=== PATIENT | female | born 1995 | race Caucasian/White ===

== ENCOUNTER 2017-03-07 07:17 | Emergency (ER) | payer SELFPAY ==
[~2017-03-07] VITALS: Ht 170.2 cm; Wt 64.9 kg
[~2017-03-07 07:17] MED LIST: CIPR250T30 PO; CIPR500T94 PO; GUAI120L35 PO; ONDA4TAB10 SL; PHEN100T82 PO; POTA10TA PO; PROM118S3 PO; SULF1TAB24 PO
--- NOTE | 2017-03-07 07:51 | PHYS DOC ---
General Chief Complaint: VOMITING IN Stated Complaint: NAUSEA,VOMITING,CRAMPING 7 1/2 WKS Time Seen by MD: 07:22 Source: patient Exam Limitations: no limitations Problems: History of Present Illness Initial Comments Pt is 7.5 wks gestation 21/F to ED with her mom for n/v, cramping in . Pt states she was seen two weeks ago at [facility] for similar sx, on that day pt dx and US confirmed viable intrauterine estimated at the time 5.5wks. Pt has not seen OB states she is waiting for her insurance card. States since she was seen at [facility] two weeks ago she's had nausea with vomitting daily, past few days decrease urination/muscle cramps/dizzy when up and active. No vaginal discharge/bleeding, no focal abdominal pain complaints. Pt states she is monogamous in relationship, she admits to h/o trichomonas infection. Pt also tests regularly as she was in a prior relationship with HIV + partner, pt has tested negative to date. 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 Timing/Duration: constant Severity: moderate Modifying Factors: worse with eating, improves with medication, worse with movement, improves with rest Associated Symptoms: headaches, malaise, nausea/vomiting, weakness, other Allergies: Coded Allergies: hydrocodone (Verified Allergy, Unknown, 11/07/16) amoxicillin (Verified Adverse Reaction, Intermediate, 09/05/14) cefaclor (Verified Adverse Reaction, Intermediate, 09/05/14) per ED RN-patient states she tolerated rocephin IM shots in the past (recently) Past Medical History Medical History: other (kidney stones, UTI, trichomonas, HIV exposure) Surgical History: noncontributory Family History Significant Family History: no pertinent family hx Social History Drugs: other (cocaine and methamphetamine history denies current) Review of Systems Constitutional: denies chills, denies fever, malaise Respiratory: denies cough, denies shortness of breath Cardiovascular: denies chest pain, denies palpitations Gastrointestinal: see HPI Genitourinary: denies dysuria, denies frequency, denies hematuria Musculoskeletal: denies back pain, denies joint swelling, denies neck pain Psychiatric/Neurological: headache, denies numbness, denies paresthesia, denies weakness Hematologic/Lymphatic: denies blood clots, denies easy bleeding, denies easy bruising Physical Exam General Appearance: WD/WN, mild distress Eyes: bilateral eye normal inspection, bilateral eye PERRL, bilateral eye EOMI Ear, Nose, Throat: hearing grossly normal, normal ENT inspection, normal pharynx Neck: non-tender, supple Respiratory: normal breath sounds, no respiratory distress Cardiovascular: normal peripheral pulses, regular rate, rhythm, no edema Gastrointestinal: soft (ND, BS normal, generalized TTP no r/g/mass), no organomegaly Rectal: deferred Back: no CVA tenderness, no vertebral tenderness Extremities: non-tender, normal inspection Neurologic/Psychiatric: 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 Pt feeling much better after zofran/IV fluids. She expressed agreement/ understanding with treatment plan. Departure Time of Disposition: 09:08 Disposition: 01 HOME, SELF-CARE Diagnosis: hyperemesis gravidarium Condition: IMPROVED Patient Instructions: Diet - Hyperemesis Gravidarum, Hyperemesis Gravidarum, Medicines During Additional Instructions: Please review the patient education materials. OTC ranitidine for reflux symptoms. Aggressive hydration with gatorade, water. Stop smoking, seek medical assistance if necessary. Take vitamins daily. Rx: zofrand odt Schedule your initial OB evaluation JEFF. Follow up with a doctor next week. Return to ED with new or changing symptoms. LOGAN CARRENO DO March 07, 2017 07:51
[2017-03-07 07:58] LABS: AMPHETAMINE/METHAMPHETAMINE NEG (NEG); BARBITURATES NEG (NEG); BENZODIAZEPINES NEG (NEG); CANNABINOIDS POS (NEG); COCAINE NEG (NEG); METHADONE NEG (NEG); OPIATES NEG (NEG); PHENCYCLIDINE NEG (NEG)
[2017-03-07] MEDS ORDERED: ONDANSETRON PF 4 MG/2 ML VIAL. IV ONE (08:00)
[2017-03-07] MEDS ORDERED: LIDO:MAALOX 1:1 20 ML SINGLE DOSE PO ONE (08:00)
[2017-03-07] MEDS ORDERED: FAMOTIDINE 20 MG/2 ML VIAL IVP ONE (08:00)
[2017-03-07] MEDS ORDERED: IV NORMAL SALINE 1,000ML 1,000 ML IV SCH (08:00)
[2017-03-07 08:05] LABS: BILIRUBIN,URINE NEG (NEG); CLARITY,URINE HAZY; COLOR,URINE YELLOW; GLUCOSE,URINE NEG (NEG); NITRITE,URINE NEG (NEG); UROBILINOGEN,URINE 0.2 mg/dL (0.2 mg/dL)
[2017-03-07 08:06] LABS: BACTERIA,URINE FEW /HPF (0-FEW); SQUAMOUS EPITHELIAL CELL,UR FEW /LPF
[2017-03-07 08:19] LABS: BASO % 0 % (0-3); EOS % 1 % (0-3); HEMATOCRIT 39.6 % (36.0-47.0); HEMOGLOBIN 13.4 g/dL (12.0-15.5); LYMPH # 2.2 x10^3/uL (1.0-4.8); LYMPH % 23 % (24-48); MEAN CORPUSCULAR HEMOGLOBIN 31 pg (25-35); MEAN CORPUSCULAR HGB CONC 34 g/dL (31-37); MEAN CORPUSCULAR VOLUME 93 fL (79-100); MONO # 0.5 x10^3/uL (0.0-1.1); MONO % 5 % (0-9); NEUT # 6.7 x10^3uL (1.8-7.7); NEUT % 71 % (31-73); PLATELET COUNT 202 x10^3/uL (140-400); RED BLOOD COUNT 4.27 x10^6/uL (3.50-5.40); RED CELL DISTRIBUTION WIDTH 14.2 % (11.5-14.5); WHITE BLOOD COUNT 9.5 x10^3/uL (4.0-11.0)
[2017-03-07 08:36] LABS: ALBUMIN 3.8 g/dL (3.4-5.0); CALCIUM 8.8 mg/dL (8.5-10.1); CREATININE 0.7 mg/dL (0.6-1.0); DIRECT BILIRUBIN 0.1 mg/dL (0.0-0.2); GFR 105.6; MAGNESIUM 1.9 mg/dL (1.8-2.4); TOTAL BILIRUBIN 0.3 mg/dL (0.2-1.0); TOTAL PROTEIN 7.4 g/dL (6.4-8.2)
[2017-03-07] MEDS ORDERED: ONDA4TAB10 PO (09:08)
[2017-03-07 09:30] VITALS: BP 100/68
== END 2017-03-07 09:30 | disposition home or self-care (01) ==
LOC: ER 07:17
DX: O21.0 Mild hyperemesis gravidarum (principal); R51 Headache; N39.0 Urinary tract infection, site not specified; F15.10 Other stimulant abuse, uncomplicated; F14.10 Cocaine abuse, uncomplicated; Z87.442 Personal history of urinary calculi; Z3A.01 Less than 8 weeks gestation of pregnancy; Z88.1 Allergy status to other antibiotic agents; Z88.6 Allergy status to analgesic agent
CPT/HCPCS: 36415; 80048; 80076; 80305; 80320; 81001; 83735; 84702; 85027; 96361; 96374; 96375; 99284; J2405; S0028; G0480; G0481; J7030

== ENCOUNTER 2017-03-14 14:21 | Emergency (ER) | payer MEDICAID, OTHER ==
[~2017-03-14] VITALS: Ht 170.2 cm; Wt 64.9 kg
[~2017-03-14 14:21] MED LIST changes: +ONDA4TAB10 PO
[2017-03-14 14:24] VITALS: BP 125/50
--- NOTE | 2017-03-14 14:57 | PHYS DOC ---
Past History Past Medical History: Kidney Stones, Ovarian Cyst, UTI, Other Past Surgical History: Other Smoking: Non-smoker Alcohol Use: Rarely Drug Use: Cocaine, Marijuana, Methamphetamine Adult General Chief Complaint Chief Complaint: MECHANICAL FALL HPI HPI Patient is a 21-year-old female who fell down a flight of stairs on her back, she was carrying something and the stairs worse deep, she just missed a step. She denies being injured by anyone, denies being pushed. She states she fell down about 15-20 stairs. She is especially worried because she is 9 weeks . She has not had any care, she is "waiting for her insurance" . She's had no vaginal bleeding. Review of Systems Review of Systems : States that she is Musculoskeletal: Complains of back pain, denies other musculoskeletal pain Allergies Allergies Allergies Coded Allergies Type Severity Reaction Last Updated Verified hydrocodone Allergy Unknown 11/07/16 Yes amoxicillin Adverse Reaction Intermediate 09/05/14 Yes cefaclor Adverse Reaction Intermediate 09/05/14 Yes Physical Exam Physical Exam Constitutional: Well developed, well nourished, tearful, worried, no acute distress, alert, mentating normally. HENT: Normocephalic, atraumatic, bilateral external ears normal, nose normal. [] Neck: Normal range of motion, no stridor. [] Cardiovascular:Heart rate regular rhythm, no murmur [] Lungs & Thorax: Bilateral breath sounds clear to auscultation [] Abdomen: Bowel sounds normal, soft, nondistended, no tenderness, no masses, no pulsatile masses. Uterus not palpable. Skin: Warm, dry, no erythema, no rash. [] Back: No acute injury noted, no ecchymosis, no swelling, no deformity. Mild generalized tenderness to palpation across the mid to lower thoracic and upper lumbar areas and no bony point tenderness, no crepitance. Extremities: No tenderness, no cyanosis, no clubbing, ROM intact, no edema. [] Neurologic: Alert and oriented X 3, normal motor function, normal sensory function, no focal deficits noted. [] Current Patient Data Vital Signs Vital Signs Date Time Temp Pulse Resp B/P (MAP) Pulse Ox O2 Delivery O2 Flow Rate FiO2 03/14/17 14:24 98.3 105 16 100 Room Air EKG EKG [] Radiology/Procedures Radiology/Procedures [] Course & Med Decision Making Course & Med Decision Making Pertinent Labs and Imaging studies reviewed. (See chart for details) 21-year-old female who states she is 9 weeks fell down a flight of stairs with pain to her back. I discussed with patient and mother that because she is , I would not recommend x-rays of her back and she states she does not want x-rays and agrees with that. I explained to the patient and mother that at 9 weeks, there is no danger to the tiny fetus from a fall, discussed that as the baby grows this will become more of a concern but at this time it is not a concern. Discussed symptomatic treatment including ice and Tylenol, and I urged her to follow up with OB for routine care as soon as possible. [] Dragon Disclaimer Dragon Disclaimer This chart was dictated in whole or in part using Voice Recognition software in a busy, high-work load, and often noisy Emergency Department environment. It may contain unintended and wholly unrecognized errors or omissions. Departure Departure: Impression: Primary Impression: Contusion of back Disposition: 01 HOME, SELF-CARE Condition: STABLE Referrals: PCP,NO (PCP) Patient Instructions: Contusion, [id number] Additional Instructions: As we discussed, ice to areas of pain. Tylenol is safe during . Rest, you'll probably hurt worse before you feel better. As we discussed, in the first trimester,(12 weeks), your baby is very tiny and is well protected inside of your uterus and the bones of your pelvis. Although we can't determine if the itself is "normal", we can save the your baby was not injured by the fall today because it is so tiny and well protected. I encourage you to get OB follow-up as soon as possible. Check with the [facility] on what they can provide you until you're able to get an OB doctor. HARSHAL CHAMPION MD March 14, 2017 14:57
== END 2017-03-14 15:05 | disposition home or self-care (01) ==
LOC: ER 14:21
DX: O9A.211 Injury, poisoning and certain other consequences of external causes complicating pregnancy, first trimester (principal); S30.0XXA Contusion of lower back and pelvis, initial encounter; S20.222A Contusion of left back wall of thorax, initial encounter; S20.221A Contusion of right back wall of thorax, initial encounter; F15.10 Other stimulant abuse, uncomplicated; F14.10 Cocaine abuse, uncomplicated; F12.10 Cannabis abuse, uncomplicated; Z87.442 Personal history of urinary calculi; Z87.440 Personal history of urinary (tract) infections; Z88.6 Allergy status to analgesic agent; Z88.1 Allergy status to other antibiotic agents; Z3A.09 9 weeks gestation of pregnancy; W10.8XXA Fall (on) (from) other stairs and steps, initial encounter; Y93.89 Activity, other specified; Y99.8 Other external cause status; Y92.89 Other specified places as the place of occurrence of the external cause
CPT/HCPCS: 99282

== ENCOUNTER 2017-06-05 12:42 | Emergency (ER) | payer SELFPAY ==
--- NOTE | 2017-06-05 13:20 | PHYS DOC ---
Past History Past Medical History: Kidney Stones, Ovarian Cyst, UTI, Other Past Surgical History: Other Smoking: Non-smoker Alcohol Use: Rarely Drug Use: Cocaine, Marijuana, Methamphetamine Adult General Chief Complaint Chief Complaint: VOMITING IN HPI HPI Patient is a 22-year-old female, 1, para 0, 21 weeks , complaining of vomiting. Patient's doctor told her to come in and get IV fluids. Patient had vomiting earlier in her and did have to come in for some IV fluids, it seemed to improve but she has been having vomiting over the last 1-2 days. No blood in her stool. No diarrhea. No fever. No vaginal bleeding or discharge. She has felt the baby move. Her next doctor's appointment is in 2 weeks. Patient denies chronic medical problems. Review of Systems Review of Systems Constitutional: Denies fever or chills [] GI: As in history of present illness : Denies dysuria or hematuria Musculoskeletal: Denies back pain or joint pain [] Allergies Allergies Allergies Coded Allergies Type Severity Reaction Last Updated Verified hydrocodone Allergy Unknown 11/07/16 Yes amoxicillin Adverse Reaction Intermediate 09/05/14 Yes cefaclor Adverse Reaction Intermediate 09/05/14 Yes Physical Exam Physical Exam Constitutional: Well developed, well nourished, no acute distress, non-toxic appearance. Alert, ambulatory, mentating normally. HENT: Normocephalic, atraumatic, bilateral external ears normal, oropharynx moist, nose normal. [] Eyes: conjunctiva normal, no discharge. [] Neck: Normal range of motion, no stridor. [] Cardiovascular:Heart rate regular rhythm, no murmur Lungs & Thorax: Bilateral breath sounds clear to auscultation [] Abdomen: Gravid consistent with 21 weeks, soft, no tenderness, no masses, no pulsatile masses. [] Skin: Warm, dry, no erythema, no rash. [] Extremities: No tenderness, no cyanosis, no clubbing, ROM intact, no edema. [] Neurologic: Alert and oriented X 3, normal motor function, normal sensory function, no focal deficits noted. [] EKG EKG [] Radiology/Procedures Radiology/Procedures [] Course & Med Decision Making Course & Med Decision Making Pertinent Labs and Imaging studies reviewed. (See chart for details) 22-year-old female who is 21 weeks presents with vomiting. She appears nontoxic. She is ambulatory. She did not have any vomiting in the emergency department. She was given 2 L of IV fluids. Urinalysis consistent with dehydration and small amount of ketones but she believes she will be able to eat and drink if she gets a prescription for Zofran, which she has used in the past and works well for her. [] Dragon Disclaimer Dragon Disclaimer This chart was dictated in whole or in part using Voice Recognition software in a busy, high-work load, and often noisy Emergency Department environment. It may contain unintended and wholly unrecognized errors or omissions. Departure Departure: Impression: Primary Impression: Vomiting during Disposition: HOME, SELF-CARE Condition: IMPROVED Referrals: PCP,TANJA (PCP) Patient Instructions: Nausea and Vomiting, [id number] Additional Instructions: Try to sip small amounts of fluids all day long during the day to stay hydrated. I have prescribed Zofran for nausea if needed. Try to stay well rested, which often helps with nausea as well. Scripts Ondansetron (ZOFRAN ODT) 4 Mg Tab.rapdis 1 TAB SL Q8HRS Y for NAUSEA, #10 TAB Prov: HARSHAL CHAMPION MD 06/05/17 HARSHAL CHAMPION MD Jun 05, 2017 13:20
[2017-06-05] MEDS ORDERED: ONDANSETRON ODT 4 MG TAB.RAPDIS PO ONE (13:30)
[2017-06-05] MEDS ORDERED: IV NORMAL SALINE 1,000ML 1,000 ML IV ONE ×2 (13:30→15:15)
[2017-06-05 15:24] LABS: BACTERIA,URINE FEW /HPF (0-FEW); BILIRUBIN,URINE NEG (NEG); CLARITY,URINE HAZY; COLOR,URINE YELLOW; GLUCOSE,URINE NEG (NEG); NITRITE,URINE NEG (NEG); RBC,URINE OCC /HPF (0-2); SQUAMOUS EPITHELIAL CELL,UR OCC /LPF; UROBILINOGEN,URINE 0.2 mg/dL (0.2 mg/dL)
[2017-06-05] MEDS ORDERED: ONDA4TAB10 SL (15:35)
[2017-06-05 15:43] VITALS: BP 100/49
== END 2017-06-05 15:45 | disposition home or self-care (01) ==
LOC: ER 12:42
DX: O21.0 Mild hyperemesis gravidarum (principal); Z3A.21 21 weeks gestation of pregnancy; Z87.442 Personal history of urinary calculi; Z88.1 Allergy status to other antibiotic agents; Z88.5 Allergy status to narcotic agent; Z88.8 Allergy status to other drugs, medicaments and biological substances
CPT/HCPCS: 81001; 87086; 96360; 96361; 99284; Q0162; J7030

== ENCOUNTER 2018-09-01 18:47 | Emergency (ER) | payer OTHER ==
[~2018-09-01] VITALS: Ht 170.2 cm; Wt 58.4 kg
[2018-09-01] MEDS ORDERED: IV NORMAL SALINE 1,000ML 1,000 ML IV SCH (19:18)
[2018-09-01 19:31] LABS: BASO % 0 % (0-3); EOS # 0.2 x10^3/uL (0.0-0.7); EOS % 2 % (0-3); HEMATOCRIT 44.1 % (36.0-47.0); HEMOGLOBIN 14.8 g/dL (12.0-15.5); LYMPH # 4.5 x10^3/uL (1.0-4.8); LYMPH % 35 % (24-48); MEAN CORPUSCULAR HEMOGLOBIN 30 pg (25-35); MEAN CORPUSCULAR HGB CONC 34 g/dL (31-37); MEAN CORPUSCULAR VOLUME 90 fL (79-100); MONO # 0.8 x10^3/uL (0.0-1.1); MONO % 6 % (0-9); NEUT # 7.3 x10^3uL (1.8-7.7); NEUT % 57 % (31-73); PLATELET COUNT 342 x10^3/uL (140-400); RED CELL DISTRIBUTION WIDTH 14.7 % (11.5-14.5); WHITE BLOOD COUNT 12.8 x10^3/uL (4.0-11.0)
[2018-09-01 19:43] LABS: ALBUMIN/GLOBULIN RATIO 0.9 (1.0-1.7); GFR 68.7; POTASSIUM 4.1 mmol/L (3.5-5.1); TOTAL BILIRUBIN 0.3 mg/dL (0.2-1.0); TOTAL PROTEIN 8.6 g/dL (6.4-8.2)
[2018-09-01] MEDS ORDERED: HALOPERIDOL LACT 5 MG/ML VIAL. IM ONE (19:45)
[2018-09-01] MEDS ORDERED: ONDANSETRON PF 4 MG/2 ML VIAL. IV ONE (19:45)
[2018-09-01] MEDS ORDERED: diphenhydrAMINE 50 MG/ML VIAL IVP ONE (19:45)
[2018-09-01 20:00] LABS: BILIRUBIN,URINE NEG (NEG); CLARITY,URINE CLEAR; COLOR,URINE AMBER; GLUCOSE,URINE NEG (NEG); NITRITE,URINE NEG (NEG); PREG TEST PT QUAL NEGATIVE (NEG); UROBILINOGEN,URINE 0.2 mg/dL (0.2 mg/dL)
[2018-09-01] MEDS ORDERED: KETOROLAC 30 MG/ML VIAL. IV ONE (20:00)
[2018-09-01 20:01] LABS: BACTERIA,URINE 0 /HPF (0-FEW); SQUAMOUS EPITHELIAL CELL,UR MANY /LPF
[2018-09-01 20:03] LABS: AMPHETAMINE/METHAMPHETAMINE POS (NEG); BARBITURATES NEG (NEG); BENZODIAZEPINES NEG (NEG); CANNABINOIDS POS (NEG); COCAINE NEG (NEG); METHADONE NEG (NEG); OPIATES NEG (NEG); PHENCYCLIDINE NEG (NEG)
[2018-09-01] MEDS ORDERED: IOHEXOL 300 MG/ML 75 ML VIAL. IV ONE (20:30)
--- NOTE | 2018-09-01 20:49 | RAD ---
EXAM: Abdomen and pelvis CT with intravenous contrast. HISTORY: Pelvic pain. TECHNIQUE: Computed tomographic images of the abdomen and pelvis were obtained following the administration of 75 cc Omnipaque 300 intravenous contrast. Multiplanar reformatting was performed. *One or more of the following individualized dose reduction techniques were utilized for this examination: 1. Automated exposure control. 2. Adjustment of the mA and/or kV according to patient size. 3. Use of iterative reconstruction technique. COMPARISON: None. FINDINGS: Evaluation of the lower thorax is unremarkable. There is a 2 mm hypodense lesion within the posterior right hepatic lobe, too small to characterize. This likely a cyst. The gallbladder, pancreas, spleen, adrenal glands and left kidney are unremarkable. There is an approximately 2.0 cm enhancing structure along the superior aspect of the right renal pelvis which appears to communicate with the adjacent inferior vena cava, possibly a dilated right renal vein or varix. This is separate from the adjacent renal artery. The appendix is partially obscured due to multiple adjacent bowel loops. There is no convincing appendicitis. There is no bowel obstruction. There is mild mucosal thickening involving the descending colon, likely due to relative under distention. This is not clearly within limits to suggest colitis. There is a septate or septated patent uterus. There are multiple bilateral ovarian follicles. There is a small amount of pelvic free fluid. There is no lymphadenopathy. There is no suspicious osseous lesion. IMPRESSION: 1. Multiple prominent ovarian follicles and small amount of pelvic free fluid, within the aortic limits. The uterus appears septate or subseptate in configuration. 2. 2.0 cm enhancing structure along the superior aspect of the right renal hilum, the appearance of which favors a prominent renal vein or varix of no clinical significance. 3. Partially obscured appendix due to multiple adjacent bowel loops. There is no convincing appendicitis. Electronically signed by: Irena Olson MD (09/01/2018 8:45 PM) [facility]
[2018-09-01 21:30] VITALS: BP 117/69
--- NOTE | 2018-09-01 21:48 | PHYS DOC ---
Adult General Chief Complaint Chief Complaint Abdominal pain HPI HPI 23 years old female with history of drug abuse percent to the emergency department with abdominal pain all over her abdomen no nausea no vomiting no diarrhea status is been constipated over she had a bowel movement today no fever no chills no urgency no frequency Review of Systems Review of Systems Constitutional: Denies fever or chills [] Eyes: Denies change in visual acuity, redness, or eye pain [] HENT: Denies nasal congestion or sore throat [] Respiratory: Denies cough or shortness of breath [] Cardiovascular: No additional information not addressed in HPI [] GI: Denies, nausea, vomiting, bloody stools or diarrhea [] : Denies dysuria or hematuria [] Musculoskeletal: Denies back pain or joint pain [] Integument: Denies rash or skin lesions [] Neurologic: Denies headache, focal weakness or sensory changes [] Endocrine: Denies polyuria or polydipsia [] All other systems were reviewed and found to be within normal limits, except as documented in this note. Current Medications Current Medications Current Medications Medications (Trade) Dose Ordered Sig/Joie Start Time Stop Time Status Last Admin Dose Admin Diphenhydramine HCl (Benadryl) 25 mg 1X ONCE 09/01/18 19:45 09/01/18 19:46 DC 09/01/18 19:56 25 MG Haloperidol Lactate (Haldol) 2 mg 1X ONCE 09/01/18 19:45 09/01/18 19:46 DC 09/01/18 19:55 2 MG Iohexol (Omnipaque 300 Mg/ml) 75 ml 1X ONCE 09/01/18 20:30 09/01/18 20:31 DC 09/01/18 20:26 75 ML Ketorolac Tromethamine (Toradol 30mg Vial) 30 mg 1X ONCE 09/01/18 20:00 09/01/18 20:01 DC 09/01/18 19:57 30 MG Ondansetron HCl (Zofran) 4 mg 1X ONCE 09/01/18 19:45 09/01/18 19:46 DC 09/01/18 19:55 4 MG Sodium Chloride 1,000 ml @ 100 mls/hr Q10H 09/01/18 19:18 09/02/18 05:17 09/01/18 19:57 100 MLS/HR Allergies Allergies Allergies Coded Allergies Type Severity Reaction Last Updated Verified hydrocodone Allergy Unknown 09/01/18 Yes amoxicillin Adverse Reaction Intermediate 09/05/14 Yes cefaclor Adverse Reaction Intermediate 09/05/14 Yes Physical Exam Physical Exam Constitutional: Well developed, well nourished, no acute distress, non-toxic appearance. [] HENT: Normocephalic, atraumatic, bilateral external ears normal, oropharynx moist, no oral exudates, nose normal. [] Eyes: PERRLA, EOMI, conjunctiva normal, no discharge. [] Neck: Normal range of motion, no tenderness, supple, no stridor. [] Cardiovascular:Heart rate regular rhythm, no murmur [] Lungs & Thorax: Bilateral breath sounds clear to auscultation [] Abdomen: Bowel sounds normal, soft, mild tenderness all over tenderness, no masses, no pulsatile masses. [] Skin: Warm, dry, no erythema, no rash. [] Back: No tenderness, no CVA tenderness. [] Extremities: No tenderness, no cyanosis, no clubbing, ROM intact, no edema. [] Neurologic: Alert and oriented X 3, normal motor function, normal sensory function, no focal deficits noted. [] Psychologic: Affect normal, judgement normal, mood normal. [] Current Patient Data Lab Results Laboratory Tests Test 09/01/18 19:10 09/01/18 19:40 09/01/18 19:46 White Blood Count 12.8 x10^3/uL (4.0-11.0) H Red Blood Count 4.90 x10^6/uL (3.50-5.40) Hemoglobin 14.8 g/dL (12.0-15.5) Hematocrit 44.1 % (36.0-47.0) Mean Corpuscular Volume 90 fL (79-100) Mean Corpuscular Hemoglobin 30 pg (25-35) Mean Corpuscular Hemoglobin Concent 34 g/dL (31-37) Red Cell Distribution Width 14.7 % (11.5-14.5) H Platelet Count 342 x10^3/uL (140-400) Neutrophils (%) (Auto) 57 % (31-73) Lymphocytes (%) (Auto) 35 % (24-48) Monocytes (%) (Auto) 6 % (0-9) Eosinophils (%) (Auto) 2 % (0-3) Basophils (%) (Auto) 0 % (0-3) Neutrophils # (Auto) 7.3 x10^3uL (1.8-7.7) Lymphocytes # (Auto) 4.5 x10^3/uL (1.0-4.8) Monocytes # (Auto) 0.8 x10^3/uL (0.0-1.1) Eosinophils # (Auto) 0.2 x10^3/uL (0.0-0.7) Basophils # (Auto) 0.0 x10^3/uL (0.0-0.2) Sodium Level 137 mmol/L (136-145) Potassium Level 4.1 mmol/L (3.5-5.1) Chloride Level 100 mmol/L (98-107) Carbon Dioxide Level 29 mmol/L (21-32) Anion Gap 8 (6-14) Blood Urea Nitrogen 12 mg/dL (7-20) Creatinine 1.0 mg/dL (0.6-1.0) Estimated GFR (Cockcroft-Gault) 68.7 BUN/Creatinine Ratio 12 (6-20) Glucose Level 118 mg/dL (70-99) H Calcium Level 9.0 mg/dL (8.5-10.1) Total Bilirubin 0.3 mg/dL (0.2-1.0) Aspartate Amino Transferase (AST) 21 U/L (15-37) Alanine Aminotransferase (ALT) 29 U/L (14-59) Alkaline Phosphatase 88 U/L (46-116) Total Protein 8.6 g/dL (6.4-8.2) H Albumin 4.0 g/dL (3.4-5.0) Albumin/Globulin Ratio 0.9 (1.0-1.7) L Lipase 140 U/L (73-393) Urine Collection Type Unknown Urine Color Paty Urine Clarity Clear Urine pH 5.0 Urine Specific [place] >=1.030 Urine Protein Neg (NEG-TRACE) Urine Glucose (UA) Neg mg/dL (NEG) Urine Ketones (Stick) Neg mg/dL (NEG) Urine Blood Neg (NEG) Urine Nitrite Neg (NEG) Urine Bilirubin Neg (NEG) Urine Urobilinogen Dipstick 0.2 mg/dL (0.2 mg/dL) Urine Leukocyte Esterase Neg (NEG) Urine RBC 1-2 /HPF (0-2) Urine WBC 1-4 /HPF (0-4) Urine Squamous Epithelial Cells Many /LPF Urine Bacteria 0 /HPF (0-FEW) Urine Mucus Mod /LPF Serum Test, Qualitative Negative (NEG) Urine Opiates Screen Neg (NEG) Urine Methadone Screen Neg (NEG) Urine Barbiturates Neg (NEG) Urine Phencyclidine Screen Neg (NEG) Urine Amphetamine/Methamphetamine Pos (NEG) Urine Benzodiazepines Screen Neg (NEG) Urine Cocaine Screen Neg (NEG) Urine Cannabinoids Screen Pos (NEG) Urine Ethyl Alcohol Neg (NEG) POC Urine HCG, Qualitative hcg negative (Negative) EKG EKG [] Radiology/Procedures Radiology/Procedures [] Course & Med Decision Making Course & Med Decision Making Pertinent Labs and Imaging studies reviewed. (See chart for details) [] Final Impression Final Impression [] Problems: (1) Abdominal pain Qualifiers: Qualified Codes: R10.84 - Generalized abdominal pain (2) Drug abuse Dragon Disclaimer Dragon Disclaimer This electronic medical record was generated, in whole or in part, using a voice recognition dictation system. BONNIE RAI MD Sep 01, 2018 21:48
== END 2018-09-01 22:00 | disposition home or self-care (01) ==
LOC: ER 18:47
DX: R10.84 Generalized abdominal pain (principal); F19.10 Other psychoactive substance abuse, uncomplicated; Z88.5 Allergy status to narcotic agent; Z88.1 Allergy status to other antibiotic agents
CPT/HCPCS: 36415; 74177; 80053; 80307; 81001; 81025; 83690; 84703; 85025; 96372; 96374; 96375; 99285; J1200; J1630; J1885; J2405; Q9967; J7030

== ENCOUNTER 2018-10-29 09:24 | Emergency (ER) | payer OTHER ==
[~2018-10-29] VITALS: Ht 170.2 cm; Wt 61.2 kg
[2018-10-29 10:08] LABS: BACTERIA,URINE 0 /HPF (0-FEW); BILIRUBIN,URINE NEG (NEG); CLARITY,URINE CLEAR; COLOR,URINE YELLOW; GLUCOSE,URINE NEG (NEG); NITRITE,URINE NEG (NEG); RBC,URINE RARE /HPF (0-2); SQUAMOUS EPITHELIAL CELL,UR OCC /LPF; UROBILINOGEN,URINE 0.2 mg/dL (0.2 mg/dL); WBC,URINE 0 /HPF (0-4)
[2018-10-29 10:20] LABS: BASO % 0 % (0-3); EOS # 0.1 x10^3/uL (0.0-0.7); EOS % 1 % (0-3); HEMATOCRIT 37.5 % (36.0-47.0); HEMOGLOBIN 12.9 g/dL (12.0-15.5); LYMPH # 2.4 x10^3/uL (1.0-4.8); LYMPH % 31 % (24-48); MEAN CORPUSCULAR HEMOGLOBIN 31 pg (25-35); MEAN CORPUSCULAR HGB CONC 34 g/dL (31-37); MEAN CORPUSCULAR VOLUME 91 fL (79-100); MONO # 0.4 x10^3/uL (0.0-1.1); MONO % 5 % (0-9); NEUT # 4.9 x10^3uL (1.8-7.7); NEUT % 63 % (31-73); PLATELET COUNT 271 x10^3/uL (140-400); RED BLOOD COUNT 4.12 x10^6/uL (3.50-5.40); RED CELL DISTRIBUTION WIDTH 14.6 % (11.5-14.5); WHITE BLOOD COUNT 7.7 x10^3/uL (4.0-11.0)
[2018-10-29 10:28] LABS: CALCIUM 8.5 mg/dL (8.5-10.1); CREATININE 0.9 mg/dL (0.6-1.0); GFR 77.6; POTASSIUM 4.4 mmol/L (3.5-5.1)
[2018-10-29 10:48] VITALS: BP 105/61
--- NOTE | 2018-10-29 10:56 | RAD ---
OB <14 WKS W/TV History: Pelvic cramping and spotting, symptoms for about 7 weeks, positive test Comparison: None FINDINGS: Multiple transabdominal sonographic images of the pelvis are submitted. Uterus measured 8.9 x 4 x 5.4 cm. Right ovary measured 2.6 x 2.6 x 2.1 cm. Left ovary measured 2.4 x 1.7 x 2.4 cm. No intrauterine gestational sac is demonstrated. No abnormality is demonstrated of either ovary. Transvaginal ultrasound: Multiple transvaginal sonographic images of pelvis are submitted. Endometrium is thin measuring about 0.7 cm, no intrauterine gestational sac demonstrated. Uterus measured 8.4 x 4.1 x 5.5 cm. Left ovary measured 2.7 x 2.4 x 2.9 cm with normal low resistance vascularity, a few follicles present. Right ovary measured 2.7 x 2 x 2.3 cm with normal low resistance vascularity, a few follicles present. There is very small quantity of simple appearing free fluid in the pelvis. Impression: 1. No intrauterine is demonstrated, endometrium also not thickened. There is a small quantity of free fluid in the pelvis. No ectopic is demonstrated of the adnexal regions. Correlation with quantitative beta hCG value follow-up may be beneficial. Electronically signed by: Ollie George MD (10/29/2018 10:52 AM) [id number]
[2018-10-29] MEDS ORDERED: PREN-2 PO (11:21)
--- NOTE | 2018-10-29 11:21 | PHYS DOC ---
Past History Past Medical History: Asthma Past Surgical History: Other Smoking: Non-smoker Alcohol Use: None Drug Use: Cocaine, Marijuana, Methadone, Other Adult General Chief Complaint Chief Complaint: VAGINAL BLEEDING HPI HPI 23-year-old female presents with report of vaginal spotting today. Patient reports she has recent positive home test. Patient reports LMP was . Reports this is her 2nd and has child at home. Denies prior vaginal discharge. Reports some vaginal cramping and pain. Denies trauma. Denies dysuria. Denies fever/chills. 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 Allergies Allergies Allergies Coded Allergies Type Severity Reaction Last Updated Verified hydrocodone Allergy Unknown 09/01/18 Yes amoxicillin Adverse Reaction Intermediate 09/05/14 Yes cefaclor Adverse Reaction Intermediate 09/05/14 Yes Physical Exam Physical Exam Constitutional: Well developed, well nourished, no acute distress, non-toxic appearance. [] HENT: Normocephalic, atraumatic, oropharynx moist Eyes: Conjunctiva normal, no discharge. 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 [] Extremities: No tenderness, ROM intact, no edema. [] Neurologic: Alert and oriented X 3, no focal deficits noted. [] Psychologic: Affect normal, judgement normal, mood normal. [] Current Patient Data Vital Signs Vital Signs Date Time Temp Pulse Resp B/P (MAP) Pulse Ox O2 Delivery O2 Flow Rate FiO2 10/29/18 10:48 57 18 105/61 (76) 97 Room Air 10/29/18 09:25 98.6 Lab Results Laboratory Tests Test 10/29/18 09:40 10/29/18 09:47 10/29/18 10:04 Urine Collection Type Unknown Urine Color Yellow Urine Clarity Clear Urine pH 8.0 Urine Specific Bowie 1.020 Urine Protein Neg (NEG-TRACE) Urine Glucose (UA) Neg mg/dL (NEG) Urine Ketones (Stick) Neg mg/dL (NEG) Urine Blood Small (NEG) Urine Nitrite Neg (NEG) Urine Bilirubin Neg (NEG) Urine Urobilinogen Dipstick 0.2 mg/dL (0.2 mg/dL) Urine Leukocyte Esterase Neg (NEG) Urine RBC Rare /HPF (0-2) Urine WBC 0 /HPF (0-4) Urine Squamous Epithelial Cells Occ /LPF Urine Bacteria 0 /HPF (0-FEW) POC Urine HCG, Qualitative hcg positive (Negative) White Blood Count 7.7 x10^3/uL (4.0-11.0) Red Blood Count 4.12 x10^6/uL (3.50-5.40) Hemoglobin 12.9 g/dL (12.0-15.5) Hematocrit 37.5 % (36.0-47.0) Mean Corpuscular Volume 91 fL (79-100) Mean Corpuscular Hemoglobin 31 pg (25-35) Mean Corpuscular Hemoglobin Concent 34 g/dL (31-37) Red Cell Distribution Width 14.6 % (11.5-14.5) H Platelet Count 271 x10^3/uL (140-400) Neutrophils (%) (Auto) 63 % (31-73) Lymphocytes (%) (Auto) 31 % (24-48) Monocytes (%) (Auto) 5 % (0-9) Eosinophils (%) (Auto) 1 % (0-3) Basophils (%) (Auto) 0 % (0-3) Neutrophils # (Auto) 4.9 x10^3uL (1.8-7.7) Lymphocytes # (Auto) 2.4 x10^3/uL (1.0-4.8) Monocytes # (Auto) 0.4 x10^3/uL (0.0-1.1) Eosinophils # (Auto) 0.1 x10^3/uL (0.0-0.7) Basophils # (Auto) 0.0 x10^3/uL (0.0-0.2) Maternal Serum HCG Beta Subunit 812 mIU/mL (0-6) H Sodium Level 143 mmol/L (136-145) Potassium Level 4.4 mmol/L (3.5-5.1) Chloride Level 105 mmol/L (98-107) Carbon Dioxide Level 31 mmol/L (21-32) Anion Gap 7 (6-14) Blood Urea Nitrogen 11 mg/dL (7-20) Creatinine 0.9 mg/dL (0.6-1.0) Estimated GFR (Cockcroft-Gault) 77.6 Glucose Level 88 mg/dL (70-99) Calcium Level 8.5 mg/dL (8.5-10.1) Magnesium Level 2.0 mg/dL (1.8-2.4) EKG EKG [] Radiology/Procedures Radiology/Procedures PROCEDURE: OB <14 WKS W/TV OB <14 WKS W/TV History: Pelvic cramping and spotting, symptoms for about 7 weeks, positive test Comparison: None FINDINGS: Multiple transabdominal sonographic images of the pelvis are submitted. Uterus measured 8.9 x 4 x 5.4 cm. Right ovary measured 2.6 x 2.6 x 2.1 cm. Left ovary measured 2.4 x 1.7 x 2.4 cm. No intrauterine gestational sac is demonstrated. No abnormality is demonstrated of either ovary. Transvaginal ultrasound: Multiple transvaginal sonographic images of pelvis are submitted. Endometrium is thin measuring about 0.7 cm, no intrauterine gestational sac demonstrated. Uterus measured 8.4 x 4.1 x 5.5 cm. Left ovary measured 2.7 x 2.4 x 2.9 cm with normal low resistance vascularity, a few follicles present. Right ovary measured 2.7 x 2 x 2.3 cm with normal low resistance vascularity, a few follicles present. There is very small quantity of simple appearing free fluid in the pelvis. Impression: 1. No intrauterine is demonstrated, endometrium also not thickened. There is a small quantity of free fluid in the pelvis. No ectopic is demonstrated of the adnexal regions. Correlation with quantitative beta hCG value follow-up may be beneficial. Electronically signed by: Ollie George MD (10/29/2018 10:52 AM) [id number] Course & Med Decision Making Course & Med Decision Making Pertinent Labs and Imaging studies reviewed. (See chart for details) Patient presents as AB0 at approximately 6 weeks with vaginal spotting and some cramping. BHCG 800. ABO: B+. Pelvic exam performed. Chlamydia/ Gonorrhea cultures obtained. Hx of allergy to cephalosporins. IM Gent and PO azithromycin empirically given. Wet mount positive for BV. Rx for flagyl given. US without signs of intrauterine gestation. No signs of ectopic . US results could also be secondary to early . Patient stable for discharge with outpatient follow-up with PCP/[facility]PRENT[facility] for repeat BHCG evaluation. Discussed findings and plan with patient, who acknowledges understanding and agreement. Dragon Disclaimer Dragon Disclaimer This electronic medical record was generated, in whole or in part, using a voice recognition dictation system. Departure Departure: Impression: Primary Impression: Threatened miscarriage in early Additional Impression: Bacterial vaginosis Disposition: 01 HOME, SELF-CARE Condition: STABLE Referrals: VANESSA MO MD (PCP) Patient Instructions: Bacterial Vaginosis, [id number], Threatened Miscarriage , [id number] Scripts Metronidazole (FLAGYL) 500 Mg Tablet 1 TAB PO BID for Vagniosis, #14 TAB Prov: AJAY SALMON DO 10/29/18 Vit #76/Iron,Carb/Fa (PRENATABS RX TABLET) 1 Each Tablet 1 TAB PO DAILY for , #30 TAB 0 Refills Prov: AJAY SALMON DO 10/29/18 Problem Qualifiers AJAY SALMON DO Oct 29, 2018 11:21
[2018-10-29] MEDS ORDERED: GENTAMICIN SULFATE 80 MG/2 ML VIAL. IM ONE (11:45)
[2018-10-29] MEDS ORDERED: AZITHROMYCIN 250 MG TABLET. PO ONE (11:45)
[2018-10-29] MEDS ORDERED: METR500T PO (11:50)
[2018-11-01 13:13] LABS: CHLAMYDIA PROBE Positive (Negative)
== END 2018-10-29 11:10 | disposition home or self-care (01) ==
LOC: ER 09:24
DX: O20.0 Threatened abortion (principal); O23.591 Infection of other part of genital tract in pregnancy, first trimester; N76.0 Acute vaginitis; B96.89 Other specified bacterial agents as the cause of diseases classified elsewhere; O99.511 Diseases of the respiratory system complicating pregnancy, first trimester; J45.909 Unspecified asthma, uncomplicated; Z3A.01 Less than 8 weeks gestation of pregnancy; Z88.5 Allergy status to narcotic agent; Z88.1 Allergy status to other antibiotic agents
CPT/HCPCS: 36415; 76801; 76817; 80048; 81001; 81025; 83735; 84702; 85025; 86900; 86901; 87491; 87591; 96372; 99284; J0456; J1580; Q0111

== ENCOUNTER 2019-02-01 20:52 | Emergency (ER) | payer OTHER ==
[~2019-02-01] VITALS: Ht 170.2 cm; Wt 69.4 kg
[~2019-02-01 20:52] MED LIST changes: +METR500T PO; +PREN-2 PO
[2019-02-01] MEDS ORDERED: IV NORMAL SALINE 1,000ML 1,000 ML IV ONE (21:15)
[2019-02-01 21:29] LABS: BASO % 0 % (0-3); EOS % 0 % (0-3); HEMOGLOBIN 12.2 g/dL (12.0-15.5); LYMPH # 1.4 x10^3/uL (1.0-4.8); LYMPH % 18 % (24-48); MEAN CORPUSCULAR HEMOGLOBIN 31 pg (25-35); MEAN CORPUSCULAR HGB CONC 34 g/dL (31-37); MEAN CORPUSCULAR VOLUME 92 fL (79-100); MONO # 0.7 x10^3/uL (0.0-1.1); MONO % 8 % (0-9); NEUT # 5.8 x10^3uL (1.8-7.7); NEUT % 73 % (31-73); PLATELET COUNT 182 x10^3/uL (140-400); RED BLOOD COUNT 3.93 x10^6/uL (3.50-5.40); RED CELL DISTRIBUTION WIDTH 13.7 % (11.5-14.5); WHITE BLOOD COUNT 7.9 x10^3/uL (4.0-11.0)
[2019-02-01] MEDS ORDERED: ONDANSETRON PF 4 MG/2 ML VIAL. IV ONE (21:30)
[2019-02-01] MEDS ORDERED: FAMOTIDINE 20 MG/2 ML VIAL IVP ONE (21:30)
[2019-02-01 21:44] LABS: ALBUMIN 3.5 g/dL (3.4-5.0); CALCIUM 8.6 mg/dL (8.5-10.1); CREATININE 0.6 mg/dL (0.6-1.0); GFR 123.9; MAGNESIUM 1.7 mg/dL (1.8-2.4); POTASSIUM 3.6 mmol/L (3.5-5.1); TOTAL BILIRUBIN 0.5 mg/dL (0.2-1.0); TOTAL PROTEIN 7.1 g/dL (6.4-8.2)
[2019-02-01 21:49] LABS: BACTERIA,URINE FEW /HPF (0-FEW); BILIRUBIN,URINE NEG (NEG); CLARITY,URINE HAZY; COLOR,URINE YELLOW; GLUCOSE,URINE NEG (NEG); NITRITE,URINE NEG (NEG); RBC,URINE RARE /HPF (0-2); SQUAMOUS EPITHELIAL CELL,UR MOD /LPF; UROBILINOGEN,URINE 0.2 mg/dL (0.2 mg/dL)
[2019-02-01] MEDS ORDERED: IV DEXTROSE 5% - 0.9 % NACL 1,000 ML IV ONE (22:30)
[2019-02-01] MEDS ORDERED: MAGNESIUM SULFATE 2GM 50 ML IV ONE (22:30)
[2019-02-01] MEDS ORDERED: ONDA4TAB12 PO (23:59)
[2019-02-02] MEDS ORDERED: PREN-2 PO (00:01)
--- NOTE | 2019-02-02 00:01 | PHYS DOC ---
Past History Past Medical History: Asthma Past Surgical History: Other Smoking: Non-smoker Alcohol Use: None Drug Use: Cocaine, Marijuana, Methadone, Other Adult General Chief Complaint Chief Complaint: ABDOMINAL PAIN IN HPI HPI 23-year-old female presents as at approximately 8 weeks gestation with report of progressive nausea and vomiting today. Patient reports she has had several week history of intermittent nausea and vomiting primarily in the morning. Denies diarrhea. Denies fever or chills. Patient does report having a sore throat this morning. Denies dysuria. Denies vaginal bleeding or discharge. Review of Systems Review of Systems Constitutional: Denies fever or chills [] Eyes: Denies change in visual acuity, redness, or eye pain [] HENT: Denies nasal congestion; reports sore throat[] Respiratory: Denies cough or shortness of breath [] Cardiovascular: Denies chest pain or palpitations GI: Denies diarrhea; reports nausea and vomiting : Denies dysuria or hematuria; reports [] Musculoskeletal: Denies back pain or joint pain [] Integument: Denies rash or skin lesions [] Neurologic: Denies headache or sensory changes [] Complete systems were reviewed and found to be within normal limits, except as documented in this note. Current Medications Current Medications Current Medications Medications (Trade) Dose Ordered Sig/Joie Start Time Stop Time Status Last Admin Dose Admin Dextrose/Sodium Chloride 1,000 ml @ 1,000 mls/hr 1X ONCE 02/01/19 22:30 02/01/19 23:29 DC 02/01/19 23:01 1,000 MLS/HR Famotidine (Pepcid Vial) 20 mg 1X ONCE 02/01/19 21:30 02/01/19 21:31 DC 02/01/19 21:25 20 MG Magnesium Sulfate 50 ml @ 25 mls/hr 1X ONCE 02/01/19 22:30 02/02/19 00:29 02/01/19 22:45 25 MLS/HR Ondansetron HCl (Zofran) 4 mg 1X ONCE 02/01/19 21:30 02/01/19 21:31 DC 02/01/19 21:25 4 MG Sodium Chloride 1,000 ml @ 1,000 mls/hr 1X ONCE 02/01/19 21:15 02/01/19 22:14 DC 02/01/19 21:25 1,000 MLS/HR Allergies Allergies Allergies Coded Allergies Type Severity Reaction Last Updated Verified hydrocodone Allergy Unknown 09/01/18 Yes amoxicillin Adverse Reaction Intermediate 09/05/14 Yes cefaclor Adverse Reaction Intermediate 09/05/14 Yes Physical Exam Physical Exam Constitutional: Well developed, well nourished, no acute distress, non-toxic appearance. [] HENT: Normocephalic, atraumatic, oropharynx tacky. No pharyngeal erythema or exudate Eyes: Conjunctiva normal, no discharge. [] Neck: Normal range of motion, no tenderness, supple, no meningeal signs Cardiovascular: Heart rate regular rhythm, no murmur [] Lungs & Thorax: Bilateral breath sounds clear to auscultation [] Abdomen: Soft, no tenderness Skin: Warm, dry, no erythema, no rash. [] Back: No tenderness, no CVA tenderness. [] Extremities: No tenderness, ROM intact, no edema. [] Neurologic: Alert and oriented X 3, no focal deficits noted. [] Psychologic: Affect normal, judgement normal, mood normal. [] Current Patient Data Vital Signs Vital Signs Date Time Temp Pulse Resp B/P (MAP) Pulse Ox O2 Delivery O2 Flow Rate FiO2 02/01/19 22:47 87 18 94/55 (68) 100 Room Air 02/01/19 21:09 98.6 Lab Results Laboratory Tests Test 02/01/19 21:18 02/01/19 21:27 White Blood Count 7.9 x10^3/uL (4.0-11.0) Red Blood Count 3.93 x10^6/uL (3.50-5.40) Hemoglobin 12.2 g/dL (12.0-15.5) Hematocrit 36.0 % (36.0-47.0) Mean Corpuscular Volume 92 fL (79-100) Mean Corpuscular Hemoglobin 31 pg (25-35) Mean Corpuscular Hemoglobin Concent 34 g/dL (31-37) Red Cell Distribution Width 13.7 % (11.5-14.5) Platelet Count 182 x10^3/uL (140-400) Neutrophils (%) (Auto) 73 % (31-73) Lymphocytes (%) (Auto) 18 % (24-48) L Monocytes (%) (Auto) 8 % (0-9) Eosinophils (%) (Auto) 0 % (0-3) Basophils (%) (Auto) 0 % (0-3) Neutrophils # (Auto) 5.8 x10^3uL (1.8-7.7) Lymphocytes # (Auto) 1.4 x10^3/uL (1.0-4.8) Monocytes # (Auto) 0.7 x10^3/uL (0.0-1.1) Eosinophils # (Auto) 0.0 x10^3/uL (0.0-0.7) Basophils # (Auto) 0.0 x10^3/uL (0.0-0.2) Maternal Serum HCG Beta Subunit 27903 mIU/mL (0-6) H Sodium Level 137 mmol/L (136-145) Potassium Level 3.6 mmol/L (3.5-5.1) Chloride Level 103 mmol/L (98-107) Carbon Dioxide Level 25 mmol/L (21-32) Anion Gap 9 (6-14) Blood Urea Nitrogen 7 mg/dL (7-20) Creatinine 0.6 mg/dL (0.6-1.0) Estimated GFR (Cockcroft-Gault) 123.9 BUN/Creatinine Ratio 12 (6-20) Glucose Level 84 mg/dL (70-99) Calcium Level 8.6 mg/dL (8.5-10.1) Magnesium Level 1.7 mg/dL (1.8-2.4) L Total Bilirubin 0.5 mg/dL (0.2-1.0) Aspartate Amino Transferase (AST) 12 U/L (15-37) L Alanine Aminotransferase (ALT) 14 U/L (14-59) Alkaline Phosphatase 42 U/L (46-116) L Total Protein 7.1 g/dL (6.4-8.2) Albumin 3.5 g/dL (3.4-5.0) Albumin/Globulin Ratio 1.0 (1.0-1.7) Lipase 60 U/L (73-393) L Urine Collection Type Unknown Urine Color Yellow Urine Clarity Hazy Urine pH 6.5 Urine Specific Victor 1.010 Urine Protein Neg (NEG-TRACE) Urine Glucose (UA) Neg mg/dL (NEG) Urine Ketones (Stick) >=160 mg/dL (NEG) Urine Blood Trace (NEG) Urine Nitrite Neg (NEG) Urine Bilirubin Neg (NEG) Urine Urobilinogen Dipstick 0.2 mg/dL (0.2 mg/dL) Urine Leukocyte Esterase Trace (NEG) Urine RBC Rare /HPF (0-2) Urine WBC 5-10 /HPF (0-4) Urine Squamous Epithelial Cells Mod /LPF Urine Bacteria Few /HPF (0-FEW) EKG EKG [] Radiology/Procedures Radiology/Procedures [] Course & Med Decision Making Course & Med Decision Making Pertinent Lab studies reviewed. (See chart for details) Patient presents with history of present illness and physical exam concerning for hyperemesis gravidarum. Abdomen non-peritoneal. Denies vaginal bleeding or discharge. Labs obtained and posted to chart. UA with significant ketones. UA does have some findings of possible infection versus contamination. Patient denies any symptoms therefore empiric antibiotics held. Symptomatic treatment provided with interval improvement of symptoms. Patient was given 1 L of normal saline along with 1 L of D5 normal saline. Magnesium replaced. Patient stable for discharge with outpatient follow-up with PCP/OB. Discussed findings and plan with patient and family, who acknowledge understanding and agreement. Dragon Disclaimer Dragon Disclaimer This electronic medical record was generated, in whole or in part, using a voice recognition dictation system. Departure Departure: Impression: Primary Impression: Hyperemesis gravidarum Disposition: 01 HOME, SELF-CARE Condition: IMPROVED Referrals: VANESSA MO MD (PCP) Patient Instructions: Diet - Hyperemesis Gravidarum, Hyperemesis Gravidarum AJAY SALMON DO Feb 02, 2019 00:01
[2019-02-02 00:30] VITALS: BP 93/61
== END 2019-02-02 00:40 | disposition home or self-care (01) ==
LOC: ER 20:52
DX: O21.0 Mild hyperemesis gravidarum (principal); J02.9 Acute pharyngitis, unspecified; O99.511 Diseases of the respiratory system complicating pregnancy, first trimester; J45.909 Unspecified asthma, uncomplicated; Z88.5 Allergy status to narcotic agent; Z3A.08 8 weeks gestation of pregnancy; Z88.1 Allergy status to other antibiotic agents
CPT/HCPCS: 36415; 80053; 81001; 83690; 83735; 84702; 85025; 87086; 96361; 96365; 96366; 96375; 99283; J2405; J3475; J3490; J7042; J7030

== ENCOUNTER 2019-04-08 07:24 | Emergency (ER) | payer OTHER ==
[~2019-04-08] VITALS: Ht 170.2 cm; Wt 76.0 kg
[~2019-04-08 07:24] MED LIST changes: +ONDA4TAB12 PO
--- NOTE | 2019-04-08 07:57 | PHYS DOC ---
Past History Past Medical History: Asthma, Hypothyroid Past Surgical History: Other Smoking: Cigarettes, Less than 1pk/day Additional Smoking Information: 10/27 PPD Alcohol Use: None Drug Use: None Adult General Chief Complaint Chief Complaint: VOMITING IN HPI HPI Patient is a 23-year-old female presents complaining of nausea and vomiting that started at 11:00 last night. Also some diarrhea. No blood in the stool or emesis. Patient is 17 weeks . Denies any dysuria. No fever. No new foods or restaurants. No sick contacts. Nothing makes the symptoms better or worse. There is some mild to moderate cramping in her abdomen. Patient is G3, P1-0-1-1. [] Review of Systems Review of Systems Constitutional: Denies fever or chills [] Eyes: Denies change in visual acuity, redness, or eye pain [] HENT: Denies nasal congestion or sore throat [] Respiratory: Denies cough or shortness of breath [] Cardiovascular: No chest pain or palpitations[] GI: See history of present illness[] : Denies dysuria or hematuria [] Musculoskeletal: Denies back pain or joint pain [] Integument: Denies rash or skin lesions [] Neurologic: Denies headache, focal weakness or sensory changes [] Endocrine: Denies polyuria or polydipsia [] All other systems were reviewed and found to be within normal limits, except as documented in this note. Allergies Allergies Allergies Coded Allergies Type Severity Reaction Last Updated Verified hydrocodone Allergy Unknown 09/01/18 Yes amoxicillin Adverse Reaction Intermediate 04/08/19 Yes cefaclor Adverse Reaction Intermediate 04/08/19 Yes Physical Exam Physical Exam Constitutional: Well developed, well nourished, no acute distress, non-toxic appearance. [] HENT: Normocephalic, atraumatic, bilateral external ears normal, dry mucous membranes, no oral exudates, nose normal. [] Eyes: PERRLA, EOMI, conjunctiva normal, no discharge. [] Neck: Normal range of motion, no tenderness, supple, no stridor. [] Cardiovascular:Heart rate is tachycardic with a regular rhythm, no murmur [] Lungs & Thorax: Bilateral breath sounds clear to auscultation [] Abdomen: Bowel sounds normal, soft, diffuse tenderness, fundus approximately one hand breath below the umbilicus with heart tones in the 150s, no rebound, no guarding, no rigidity, able to sit up and lay back without any difficulty. No pulsatile masses. [] Skin: Warm, dry, no erythema, no rash. [] Back: No tenderness, no CVA tenderness. [] Extremities: No tenderness, no cyanosis, no clubbing, ROM intact, no edema. [] Neurologic: Alert and oriented X 3, normal motor function, normal sensory function, no focal deficits noted. [] Psychologic: Affect normal, judgement normal, mood normal. [] Current Patient Data Vital Signs Vital Signs Date Time Temp Pulse Resp B/P (MAP) Pulse Ox O2 Delivery O2 Flow Rate FiO2 04/08/19 07:36 97.4 113 21 99 Room Air EKG EKG [] Radiology/Procedures Radiology/Procedures [] Course & Med Decision Making Course & Med Decision Making Pertinent Labs and Imaging studies reviewed. (See chart for details) ED course: Patient arrived, was placed in bed, and tolerated exam well. She was given IV fluids as well as antiemetics and antispasmodics which improved her symptoms. After the return of laboratory findings, these were discussed with the patient who voiced understanding. All questions were answered. She was discharg ed in improved condition. Medical decision making: There is no evidence of ketosis, no significant electrolyte abnormalities. Patient is by mouth tolerant. Her urine while has 14 white cells per Melia has many squamous cells so believe this to be a co ntaminated specimen. Culture will be an process.[] Dragon Disclaimer Dragon Disclaimer This electronic medical record was generated, in whole or in part, using a voice recognition dictation system. Departure Departure: Impression: Primary Impression: Nausea and vomiting Additional Impression: Disposition: HOME, SELF-CARE Condition: IMPROVED Referrals: VANESSA MO MD (PCP) Follow-up in 2 days Patient Instructions: ABCs of , Nausea and Vomiting Additional Instructions: Drink plenty of fluids, frequent small sips. No fatty foods, no milk, and no pepper for the next 48 hours. For the next 48 hours eat a diet rich in carbo hydrates with foods such as bananas, rice, applesauce, and toast. Follow-up with your regular doctor in 2 days. Return to the ER if unable to tolerate liquids, blood in your stool or emesis, or any other concerns. Scripts Dicyclomine Hcl (DICYCLOMINE HCL) 20 Mg Tablet 1 TAB PO TID for ABDOMINAL CRAMPING, #30 TAB 0 Refills Prov: ARCENIO PEARSON DO 04/08/19 Metoclopramide Hcl (REGLAN) 10 Mg Tablet 10 MG PO QID for nausea and vomiting, #30 TAB Prov: ARCENIO PEARSON DO 04/08/19 Problem Qualifiers Primary Impression: Nausea and vomiting Vomiting type: unspecified Vomiting Intractability: non-intractable Q ualified Codes: R11.2 - Nausea with vomiting, unspecified Additional Impression: Weeks of gestation: 17 weeks Qualified Codes: Z3A.17 - 17 weeks gestation of ARCENIO PEARSON DO Apr 08, 2019 07:56
[2019-04-08] MEDS ORDERED: IV DEXTROSE 5% - 0.9 % NACL 1,000 ML IV ONE (08:00)
[2019-04-08] MEDS ORDERED: ONDANSETRON PF 4 MG/2 ML VIAL. IV ONE (08:00)
[2019-04-08] MEDS ORDERED: DICYCLOMINE HCL 20 MG TABLET PO ONE (08:00)
[2019-04-08 08:08] LABS: BACTERIA,URINE FEW /HPF (0-FEW); BILIRUBIN,URINE NEG (NEG); CLARITY,URINE HAZY; COLOR,URINE YELLOW; GLUCOSE,URINE NEG (NEG); NITRITE,URINE NEG (NEG); RBC,URINE 0 /HPF (0-2); SQUAMOUS EPITHELIAL CELL,UR MANY /LPF; UROBILINOGEN,URINE 0.2 mg/dL (0.2 mg/dL)
[2019-04-08 08:09] LABS: BASO % 0 % (0-3); EOS % 0 % (0-3); HEMATOCRIT 36.3 % (36.0-47.0); HEMOGLOBIN 12.3 g/dL (12.0-15.5); LYMPH # 0.6 x10^3/uL (1.0-4.8); LYMPH % 5 % (24-48); MEAN CORPUSCULAR HEMOGLOBIN 31 pg (25-35); MEAN CORPUSCULAR HGB CONC 34 g/dL (31-37); MEAN CORPUSCULAR VOLUME 93 fL (79-100); MONO # 0.2 x10^3/uL (0.0-1.1); MONO % 2 % (0-9); NEUT # 10.3 x10^3uL (1.8-7.7); NEUT % 93 % (31-73); PLATELET COUNT 184 x10^3/uL (140-400); RED BLOOD COUNT 3.93 x10^6/uL (3.50-5.40); RED CELL DISTRIBUTION WIDTH 14.4 % (11.5-14.5); WHITE BLOOD COUNT 11.1 x10^3/uL (4.0-11.0)
[2019-04-08 08:24] LABS: ALBUMIN 2.9 g/dL (3.4-5.0); ALBUMIN/GLOBULIN RATIO 0.8 (1.0-1.7); CALCIUM 7.8 mg/dL (8.5-10.1); CREATININE 0.5 mg/dL (0.6-1.0); GFR 152.9; POTASSIUM 3.6 mmol/L (3.5-5.1); TOTAL BILIRUBIN 0.4 mg/dL (0.2-1.0); TOTAL PROTEIN 6.6 g/dL (6.4-8.2)
[2019-04-08] MEDS ORDERED: METO10TA81 PO (08:56)
[2019-04-08] MEDS ORDERED: DICY20TA3 PO (08:56)
[2019-04-08 09:01] VITALS: BP 100/54
== END 2019-04-08 09:02 | disposition home or self-care (01) ==
LOC: ER 07:24
DX: O21.9 Vomiting of pregnancy, unspecified (principal); R19.7 Diarrhea, unspecified; O99.512 Diseases of the respiratory system complicating pregnancy, second trimester; J45.909 Unspecified asthma, uncomplicated; O99.282 Endocrine, nutritional and metabolic diseases complicating pregnancy, second trimester; E03.9 Hypothyroidism, unspecified; O99.332 Smoking (tobacco) complicating pregnancy, second trimester; Z3A.17 17 weeks gestation of pregnancy; Z88.5 Allergy status to narcotic agent; Z88.1 Allergy status to other antibiotic agents
CPT/HCPCS: 36415; 80053; 81001; 83690; 85025; 96361; 96374; 99284; J2405; J7042

== ENCOUNTER 2020-05-17 12:11 | Emergency (ER) | payer OTHER ==
[~2020-05-17] VITALS: Ht 170.2 cm; Wt 76.0 kg
[~2020-05-17 12:11] MED LIST changes: +DICY20TA3 PO; +METO10TA81 PO
[2020-05-17] MEDS ORDERED: IV NORMAL SALINE 1,000ML 1,000 ML IV ONE (12:30)
--- NOTE | 2020-05-17 12:57 | RAD ---
EXAM: Chest, single view. HISTORY: Shortness of breath. COMPARISON: None. FINDINGS: A frontal view of the chest is obtained. There is no infiltrate, pleural effusion or pneumothorax. The heart is normal in size. IMPRESSION: No acute pulmonary finding. Electronically signed by: Irena Olson MD (05/17/2020 12:54 PM) [id number]
[2020-05-17 13:05] LABS: BASO % 0 % (0-3); EOS # 0.2 x10^3/uL (0.0-0.7); EOS % 3 % (0-3); HEMATOCRIT 37.1 % (36.0-47.0); HEMOGLOBIN 12.6 g/dL (12.0-15.5); LYMPH # 2.8 x10^3/uL (1.0-4.8); LYMPH % 40 % (24-48); MEAN CORPUSCULAR HEMOGLOBIN 31 pg (25-35); MEAN CORPUSCULAR HGB CONC 34 g/dL (31-37); MEAN CORPUSCULAR VOLUME 92 fL (79-100); MONO # 0.5 x10^3/uL (0.0-1.1); MONO % 7 % (0-9); NEUT # 3.4 x10^3uL (1.8-7.7); NEUT % 50 % (31-73); PLATELET COUNT 226 x10^3/uL (140-400); RED BLOOD COUNT 4.03 x10^6/uL (3.50-5.40); WHITE BLOOD COUNT 6.9 x10^3/uL (4.0-11.0)
[2020-05-17 13:10] LABS: CALCIUM 8.6 mg/dL (8.5-10.1); CREATININE 1.1 mg/dL (0.6-1.0)
[2020-05-17 13:16] LABS: ALBUMIN 3.6 g/dL (3.4-5.0); ALBUMIN/GLOBULIN RATIO 0.9 (1.0-1.7); TOTAL BILIRUBIN 0.3 mg/dL (0.2-1.0); TOTAL PROTEIN 7.6 g/dL (6.4-8.2)
[2020-05-17 13:39] VITALS: BP 98/56
--- NOTE | 2020-05-17 13:39 | PHYS DOC ---
Past History Past Medical History: Asthma, Hypothyroid Past Surgical History: Other Smoking: Cigarettes, Less than 1pk/day Alcohol Use: None Drug Use: None General Adult EDM: Chief Complaint: FEVER HPI: HPI: 24-year-old female presents with cough, body aches, shortness of breath for last 4 days. She is not sure if she had a fever. She has no specific COVID-19 exposures, but is worried about this. She does not have any chest pain. No significant history of chronic disease. Review of Systems: Review of Systems: Constitutional: Denies fever or chills Eyes: Denies change in visual acuity HENT: nasal congestion and sore throat Respiratory: Cough with shortness of breath Cardiovascular: Denies chest pain or edema GI: Denies abdominal pain, nausea, vomiting, bloody stools or diarrhea : Denies dysuria Musculoskeletal: Denies back pain or joint pain Integument: Denies rash Neurologic: Denies headache, focal weakness or sensory changes Endocrine: Denies polyuria or polydipsia Lymphatic: Denies swollen glands Psychiatric: Denies depression or anxiety Heart Score: Risk Factors: Risk Factors: DM, Current or recent (<one month) smoker, HTN, HLP, family history of CAD, obesity. Risk Scores: Score 0 - 3: 2.5% MACE over next 6 weeks - Discharge Home Score 4 - 6: 20.3% MACE over next 6 weeks - Admit for Clinical Observation Score 7 - 10: 72.7% MACE over next 6 weeks - Early Invasive Strategies Current Medications: Current Meds: Current Medications Medications (Trade) Dose Ordered Sig/[facility] Start Time Stop Time Status Last Admin Dose Admin Sodium Chloride 1,000 ml @ 1,000 mls/hr 1X ONCE 05/17/20 12:30 05/17/20 13:29 DC 05/17/20 12:30 1,000 MLS/HR Allergies: Allergies: Allergies Coded Allergies Type Severity Reaction Last Updated Verified hydrocodone Allergy Unknown 09/01/18 Yes amoxicillin Adverse Reaction Intermediate 04/08/19 Yes cefaclor Adverse Reaction Intermediate 04/08/19 Yes Physical Exam: PE: Constitutional: Well developed, well nourished, no acute distress, non-toxic appearance. [] HENT: Normocephalic, atraumatic, bilateral external ears normal, oropharynx moist, no oral exudates, nose normal. [] Eyes: PERRLA, EOMI, conjunctiva normal, no discharge. [] Neck: Normal range of motion, no tenderness, supple, no stridor. [] Cardiovascular: Deferred due to isolation precautions [] Lungs & Thorax: Deferred due to isolation precautions [] Abdomen: Bowel sounds normal, soft, no tenderness, no masses, no pulsatile masses. [] Skin: Warm, dry, no erythema, no rash. [] Back: No tenderness, no CVA tenderness. [] Extremities: No tenderness, no cyanosis, no clubbing, ROM intact, no edema. [] Neurologic: Alert and oriented X 3, normal motor function, normal sensory function, no focal deficits noted. [] Psychologic: Affect normal, judgement normal, mood normal. [] Current Patient Data: Labs: Laboratory Tests Test 05/17/20 12:45 White Blood Count 6.9 x10^3/uL (4.0-11.0) Red Blood Count 4.03 x10^6/uL (3.50-5.40) Hemoglobin 12.6 g/dL (12.0-15.5) Hematocrit 37.1 % (36.0-47.0) Mean Corpuscular Volume 92 fL (79-100) Mean Corpuscular Hemoglobin 31 pg (25-35) Mean Corpuscular Hemoglobin Concent 34 g/dL (31-37) Red Cell Distribution Width 14.0 % (11.5-14.5) Platelet Count 226 x10^3/uL (140-400) Neutrophils (%) (Auto) 50 % (31-73) Lymphocytes (%) (Auto) 40 % (24-48) Monocytes (%) (Auto) 7 % (0-9) Eosinophils (%) (Auto) 3 % (0-3) Basophils (%) (Auto) 0 % (0-3) Neutrophils # (Auto) 3.4 x10^3uL (1.8-7.7) Lymphocytes # (Auto) 2.8 x10^3/uL (1.0-4.8) Monocytes # (Auto) 0.5 x10^3/uL (0.0-1.1) Eosinophils # (Auto) 0.2 x10^3/uL (0.0-0.7) Basophils # (Auto) 0.0 x10^3/uL (0.0-0.2) Sodium Level 141 mmol/L (136-145) Potassium Level 4.0 mmol/L (3.5-5.1) Chloride Level 106 mmol/L (98-107) Carbon Dioxide Level 28 mmol/L (21-32) Anion Gap 7 (6-14) Blood Urea Nitrogen 12 mg/dL (7-20) Creatinine 1.1 mg/dL (0.6-1.0) H Estimated GFR (Cockcroft-Gault) 61.0 BUN/Creatinine Ratio 11 (6-20) Glucose Level 99 mg/dL (70-99) Calcium Level 8.6 mg/dL (8.5-10.1) Total Bilirubin 0.3 mg/dL (0.2-1.0) Aspartate Amino Transferase (AST) 21 U/L (15-37) Alanine Aminotransferase (ALT) 30 U/L (14-59) Alkaline Phosphatase 70 U/L (46-116) Total Protein 7.6 g/dL (6.4-8.2) Albumin 3.6 g/dL (3.4-5.0) Albumin/Globulin Ratio 0.9 (1.0-1.7) L EKG: EKG: [] Radiology/Procedures: Radiology/Procedures: [] Impressions: EXAM: Chest, single view. HISTORY: Shortness of breath. COMPARISON: None. FINDINGS: A frontal view of the chest is obtained. There is no infiltrate, pleural effusion or pneumothorax. The heart is normal in size. IMPRESSION: No acute pulmonary finding. Electronically signed by: Irena Olson MD (05/17/2020 12:54 PM) [id number] DICTATED AND SIGNED BY: IRENA OLSON MD DATE: 05/17/20 3455 CC: PIO LOPEZ DO; VANESSA MO MD ~ Course & Med Decision Making: Course & Med Decision Making Pertinent Labs and Imaging studies reviewed. (See chart for details) The patient's labs are unremarkable. Her chest x-ray is negative for acute findings. We have tested her for COVID-19. Rapid strep is negative. She does not meet admission criteria. I have given the patient advice about self- isolation. She is stable for discharge at this time. [] Dragon Disclaimer: Dragon Disclaimer: This electronic medical record was generated, in whole or in part, using a voice recognition dictation system. Departure Departure: Impression: Primary Impression: Suspected 2019-nCoV infection Disposition: 01 HOME/RESIDENCE PRIOR TO ADM Condition: STABLE Referrals: VANESSA MO MD (PCP) Additional Instructions: You have been tested for or diagnosed with COVID-19. It is an infection caused by a new type of coronavirus. COVID-19 will cause cold-like or mild flu symptoms in most. It can cause more severe symptoms like problems breathing in some. There is no treatment for COVID-19. The body will clear the infection over time. Self-care will help to ease discomfort. Steps to Take: Self-Care Rest as needed. Healthy habits may help you feel better. Steps include: Choose healthy foods including fruits and vegetables. Drink water throughout the day. Get plenty of sleep each night. If you smoke, try to quit. It may ease breathing. Avoid alcohol. Keep Others Healthy The virus can spread to others. Droplets are released every time you sneeze or cough. The droplets can get into the mouth, nose, or eyes of people near you and lead to infection. To lower the chances of spreading COVID-19 to others: Stay at home until your doctor has said it is safe to leave. If you tested positive this will mean staying isolated until both of the following are true: At least 7 days have passed since the start of illness. You are free of fever for at least 72 hours without the use of medicine. During this time: - Avoid public areas, events, or transportation. Do not return to work or school until your doctor has said it is safe to do so. - Call ahead if you need to go to a medical center. Let them know you may have COVID-19. It will help them guide you where to go. They may also ask you to wear a facemask when you come to the office. - If you call for emergency medical services, let them know you may have COVID- 19. While at home: - Try to avoid close contact with others. Stay about 6 feet away. - If possible, spend most of your time in a separate room from others. - Use a face mask if you will be in close contact with others such as sharing a room or vehicle. - Have someone wipe down common surfaces in the home. Use household hyperion administrator every day on areas like doorknobs, counters, or sinks. - Cough or sneeze into a tissue. Throw the tissue away right after use. If a tissue is not available, cough or sneeze into your elbow. - Wash your hands often. Wash them after sneezing or coughing. Use soap and water and wash for at least 20 seconds. Alcohol based hand poultry cleaner can be used if soap and water is not available. - Do not prepare food for others. Avoid sharing personal items like forks, spoons, or toothbrushes. - Avoid close contact with pets while you are sick. There is no evidence of the virus passing to pets. This is a safety step until more is known about this virus. Isolation can be frustrating. Social interaction can help. Keep in touch with friends and family through phone and tech options. You can still interact with others in your home, just keep a safe distance of about 6 feet. Follow-up: Your doctors office will check in with you to see if there are any changes in your health. You may be asked to keep track of symptoms to share with them. They will also let you know when you are clear to be in public again. Problems to Look Out For: Contact your doctor if your recovery is not going as you expect. Get emergency care if you have problems such as: - Trouble breathing - Nonstop chest pain or pressure - Changes in awareness, confusion, or problems waking - Lips or face have bluish color - Worsening of symptoms If you think you have an emergency, call for emergency medical services right away. As taken from [facility] Justification of Admission: Justification of Admission: Justification of Admission Dx: N/A PIO LOPEZ DO May 17, 2020 13:39
--- NOTE | 2020-05-21 08:09 | NUR ---
IP: discussed COVID test result with patient.
== END 2020-05-17 13:57 | disposition home or self-care (01) ==
LOC: ER 12:29
DX: R05 Cough (principal); M79.10 Myalgia, unspecified site; J02.9 Acute pharyngitis, unspecified; Z20.828 Contact with and (suspected) exposure to other viral communicable diseases; J45.909 Unspecified asthma, uncomplicated; E03.9 Hypothyroidism, unspecified; F17.210 Nicotine dependence, cigarettes, uncomplicated; Z88.1 Allergy status to other antibiotic agents; Z88.5 Allergy status to narcotic agent
CPT/HCPCS: 36415; 71045; 80053; 85025; 87070; 87880; 99284; J7030; U0003

== ENCOUNTER 2020-07-16 12:00 | Emergency (ER) | payer OTHER ==
[~2020-07-16] VITALS: Ht 170.2 cm; Wt 73.7 kg
[2020-07-16 12:44] VITALS: BP 111/62
[2020-07-16 12:44] LABS: BACTERIA,URINE FEW /HPF (0-FEW); BILIRUBIN,URINE NEG (NEG); CLARITY,URINE HAZY; COLOR,URINE YELLOW; GLUCOSE,URINE NEG (NEG); NITRITE,URINE NEG (NEG); SQUAMOUS EPITHELIAL CELL,UR FEW /LPF; UROBILINOGEN,URINE 0.2 mg/dL (0.2 mg/dL)
--- NOTE | 2020-07-16 12:46 | PHYS DOC ---
Past History Past Medical History: Asthma, Hypothyroid Past Surgical History: Other Additional Past Surgical Histo: left elbow Smoking: Cigarettes, Less than 1pk/day Alcohol Use: None Drug Use: None General Adult EDM: Chief Complaint: VAGINAL BLEEDING HPI: HPI: 25 yo at 6w1d (based on FDP 06/03), presents the ED with complaints of light orange vaginal bleeding that started on Thursday and has persisted. Reports history of spontaneous in first tm over a year ago. Has an appointment to establish [facility] care with Dr. Kauffman-called him today and was referred to the ED to rule out an ectopic . Is currently not taking any medications. Denies any cocaine or drug abuse. No history of a complicated / with prior 2 children. no h/o ectopic pregnancies. Reports B positive blood type. Review of Systems: Review of Systems: Constitutional: Denies fever or chills Eyes: Denies change in visual acuity HENT: Denies nasal congestion or sore throat Respiratory: Denies cough or shortness of breath Cardiovascular: Denies chest pain or edema GI: Denies abdominal pain, nausea, vomiting, bloody stools or diarrhea, vaginal itching/odor : Denies dysuria or hematuria Musculoskeletal: Denies back pain or joint pain Integument: Denies rash Neurologic: Denies headache, focal weakness or sensory changes Endocrine: Denies polyuria or polydipsia Lymphatic: Denies swollen glands Psychiatric: Denies depression or anxiety Heart Score: Risk Factors: Risk Factors: DM, Current or recent (<one month) smoker, HTN, HLP, family history of CAD, obesity. Risk Scores: Score 0 - 3: 2.5% MACE over next 6 weeks - Discharge Home Score 4 - 6: 20.3% MACE over next 6 weeks - Admit for Clinical Observation Score 7 - 10: 72.7% MACE over next 6 weeks - Early Invasive Strategies Allergies: Allergies: Allergies Coded Allergies Type Severity Reaction Last Updated Verified hydrocodone Allergy Unknown 05/17/20 Yes amoxicillin Adverse Reaction Intermediate 05/17/20 Yes cefaclor Adverse Reaction Intermediate 05/17/20 Yes Physical Exam: PE: Constitutional: Well developed, well nourished, no acute distress, non-toxic appearance. [] HENT: Normocephalic, atraumatic, Eyes: EOMI, conjunctiva normal, no discharge. [] Neck: Normal range of motion, supple, Cardiovascular:Heart rate regular rhythm, no murmur [] Lungs & Thorax: Bilateral breath sounds clear to auscultation [] Abdomen: Bowel sounds normal, soft, no tenderness, no masses, no pulsatile masses. [] Skin: Warm, dry, no erythema, no rash. [] Back: No tenderness, no CVA tenderness. [] Extremities: No tenderness, no cyanosis, no clubbing, ROM intact, no edema. [] Neurologic: Alert and oriented X 3, normal motor function, normal sensory fun ction, no focal deficits noted. [] Psychologic: Affect normal, judgement normal, mood normal. [] Pelvic: Mild vaginal bleeding in vaginal vault, multiparous cervix, cervical os closed, external genitalia normal, no CMT or adnexal tenderness, no odorous discharge Current Patient Data: Labs: Laboratory Tests Test 07/16/20 12:26 POC Urine HCG, Qualitative hcg positive (Negative) EKG: EKG: [] Radiology/Procedures: Radiology/Procedures: []IMAGING REPORT Signed PATIENT: BESSY SALCIDO NACCOUNT: [id number] : 1995 LOCATION: ER AGE: 25 SEX: F EXAM STATUS: REG ER ORD. PHYSICIAN: KATTY WU DO REASON: vaginal bleeding in preg PROCEDURE: OB <14 WKS W/TV EXAM: ULTRASOUND PELVIS INDICATION: Reason: vaginal bleeding in preg / Spl. Instructions: / History: . Last menstrual period was 06/03/2020. COMPARISON: None available. TECHNIQUE: Transabdominal and endovaginal sonography was performed. FINDINGS: The uterus measures 9.6 x 5.8 x 4.7 cm. The endometrium measures 0.4 cm. No endometrial gestational sac is identified. There is no focal myometrial abnormality The right ovary measures 2.2 x 2.1 x 3.1cm. The left ovary measures 2.3 x 2.5 x 2.6 cm. Flow seen to both ovaries. There is small volume free pelvic fluid, simple in appearance. IMPRESSION: 1. No definite intra or extra uterine . Findings could be due to early , nonviable , cannot exclude ectopic. Follow-up in one week with serial hCG and ultrasound is recommended. 2. Otherwise, normal sonographic survey of the uterus and adnexa. No evidence for torsion. 3. Small volume free pelvic fluid. Electronically signed by: John Short MD (07/16/2020 1:31 PM) [id number] DICTATED AND SIGNED BY: JOHN SHORT MD DATE: 07/16/20 [id number] CC: [facility],NO; [facility] ~ Course & Med Decision Making: Course & Med Decision Making Pertinent Labs and Imaging studies reviewed. (See chart for details) Concern for missed versus incomplete miscarriage with vaginal bleeding for the past 2 days. Patient in no distress, vitally stable. Ectopic on differential although patient with no active pain. Hcg 115. Will recommend patient follow-up in 48 hours for repeat hCG-if downtrending, missed ab. Encouraged urgent outpatient follow-up with PMD and OB. Life-threatening processes were considered but are low suspicion at this time, given history and physical exam. Pt was educated on all prescription medications and adverse effects. All patient's questions were answered and pt was stable at time of discharge. Differential includes aortic dissection, aortic aneurysm, acute coronary syndrome, surgical abdomen (appendicitis, cholecystitis, ischemic bowel, dc ulated hernia, etc), bowel obstruction or volvulus, bladder outlet obstruction, gastrointestinal bleeding, inflammatory bowel disease, peptic ulcer disease, sepsis, diverticular disease, ureterolithiasis, nephrolithiasis, ovarian or testicular torsion, ectopic , vaginal hemorrhage of infection I spoken with the patient and her caregivers. I explained the patient's condi tion, diagnoses and treatment plan based on the information available to me at this time. I have answered the patient and her caregiver's questions and addressed any concerns. The patient and her caregivers have a good understanding of patient's diagnosis, condition and treatment plan as can be expected at this point. Vital signs have been stable. Patient's condition is stable and appropriate for discharge from the emergency department. Patient will pursue further outpatient evaluation with primary care physician or other designated or consulting physician as outlined in the discharge instructions. The patient and/or caregivers are agreeable to this plan of care and follow-up instructions have been explained in detail. The patient and/or caregivers have received these instructions in written form and have expressed an understanding of the discharge instructions. The patient and/or caregivers are aware that any significant change of condition or worsening of symptoms should prompt immediate return to this or the closest emergency department or call to [phone]. Dania Disclaimer: Dania Disclaimer: This electronic medical record was generated, in whole or in part, using a voice recognition dictation system. Departure Departure: Impression: Primary Impression: Missed Additional Impression: Vaginal bleeding during Disposition: HOME/RESIDENCE PRIOR TO ADM Condition: STABLE Referrals: PCP,NO (PCP) Patient Instructions: Miscarriage Additional Instructions: [facility] [address], [address] [place] [address] EMERGENCY DEPARTMENT GENERAL DISCHARGE INSTRUCTIONS Thank you for coming to [facility] Emergency Department (ED) today and trusting us with you care. We trust that you had a positivie experience in our Emergency Department. If you wish to speak to the department management, you may call the sirector at [phone]. YOUR FOLLOW UP INSTRUCTIONS ARE FOLLOWS: 1. Do you have a private Doctor? If you do not have a private doctir, please ask for a resource list of physicians or clinics that may be able to assist you with follow up care. 2. The Emergency Physicain has interpreted your x-rays. The X-Ray specialist will also review them. If there is a change in the findingd, you will be notified in 48 hours when at all possible. 3. A lab test or culture has been done, your results will be reviewed and you w ill be notified if you need a change in treatment. ADDITIONAL INSTRUCTIONS AND INFORMATION: 1. Your care today has been supervised by a physician who is specially trained in emergency care. Many problems require more than one evaluation for a complete diagnosis and treatment. We recommend that you schedule your follow up appointment as recommended to ensure complete treatment of you illness or injury. If you are unable to obtain follow up care and continue to have a problem, or if your consition worsens, we recommend that you return to the ED. 2. We are not able to safelymdetermine your condition over the phone nor are we able to give sound medical advice over the phone. For these safety reasons, if you call for medical advice we will ask you to come to the ED for further evaluation. 3. If you have any questions regarding these discharge instructions please call the ED at [phone]. SAFETY INFORMATION: In the interest of safety, wellness, and injury prevention; we encourage you to wear your sealbelt, if you smoke; quite smoking, and we encourage family to use a protective helmet for bicycling and other sporting events that present an increased risk for head injusry. IF YOUR SYMPTOMS WORSEN OR NEW SYMPTOMS DEVELOP, OR YOU HAVE CONCERNS ABOUT YOUR CONDITION; OR IF YOUR CONDITION WORSENS WHILE YOU ARE WAITING FOR YOUR FOLLOW UP APPOINTMENT; EITHER CONTACT YOUR PRIMARY CARE DOCTOR, THE PHYSICIAN WHOSE NAME AND NUMBER YOU WERE GIVEN, OR RETURN TO THE ED IMMEDIATELY. Justification of Admission: Justification of Admission: Justification of Admission Dx: N/A KATTY WU DO Jul 16, 2020 12:46
[2020-07-16 12:58] LABS: BASO % 0 % (0-3); EOS # 0.1 x10^3/uL (0.0-0.7); EOS % 1 % (0-3); HEMOGLOBIN 12.2 g/dL (12.0-15.5); LYMPH # 2.7 x10^3/uL (1.0-4.8); LYMPH % 37 % (24-48); MEAN CORPUSCULAR HEMOGLOBIN 31 pg (25-35); MEAN CORPUSCULAR HGB CONC 34 g/dL (31-37); MEAN CORPUSCULAR VOLUME 92 fL (79-100); MONO # 0.4 x10^3/uL (0.0-1.1); MONO % 5 % (0-9); NEUT # 4.2 x10^3uL (1.8-7.7); NEUT % 56 % (31-73); PLATELET COUNT 202 x10^3/uL (140-400); RED BLOOD COUNT 3.91 x10^6/uL (3.50-5.40); WHITE BLOOD COUNT 7.5 x10^3/uL (4.0-11.0)
[2020-07-16 13:08] LABS: CALCIUM 8.3 mg/dL (8.5-10.1); GFR 67.6; POTASSIUM 3.5 mmol/L (3.5-5.1)
--- NOTE | 2020-07-16 13:33 | RAD ---
EXAM: ULTRASOUND PELVIS INDICATION: Reason: vaginal bleeding in preg / Spl. Instructions: / History: . Last menstrual period was 06/03/2020. COMPARISON: None available. TECHNIQUE: Transabdominal and endovaginal sonography was performed. FINDINGS: The uterus measures 9.6 x 5.8 x 4.7 cm. The endometrium measures 0.4 cm. No endometrial gestational sac is identified. There is no focal myometrial abnormality The right ovary measures 2.2 x 2.1 x 3.1cm. The left ovary measures 2.3 x 2.5 x 2.6 cm. Flow seen to both ovaries. There is small volume free pelvic fluid, simple in appearance. IMPRESSION: 1. No definite intra or extra uterine . Findings could be due to early , nonviable , cannot exclude ectopic. Follow-up in one week with serial hCG and ultrasound is recommended. 2. Otherwise, normal sonographic survey of the uterus and adnexa. No evidence for torsion. 3. Small volume free pelvic fluid. Electronically signed by: John Diamond MD (07/16/2020 1:31 PM) [id number]
== END 2020-07-16 14:18 | disposition home or self-care (01) ==
LOC: ER 12:00
DX: O02.1 Missed abortion (principal); O99.511 Diseases of the respiratory system complicating pregnancy, first trimester; J45.909 Unspecified asthma, uncomplicated; O99.281 Endocrine, nutritional and metabolic diseases complicating pregnancy, first trimester; E03.9 Hypothyroidism, unspecified; O99.331 Smoking (tobacco) complicating pregnancy, first trimester; Z3A.01 Less than 8 weeks gestation of pregnancy; Z88.5 Allergy status to narcotic agent; Z88.1 Allergy status to other antibiotic agents
CPT/HCPCS: 36415; 76801; 76817; 80048; 81001; 81025; 84702; 85025; 87086; 99284

== ENCOUNTER 2020-11-01 08:42 | Emergency (ER) | payer OTHER ==
[~2020-11-01] VITALS: Ht 170.2 cm; Wt 68.0 kg
--- NOTE | 2020-11-01 08:55 | PHYS DOC ---
Past History Past Medical History: Anxiety, Asthma, Hypothyroid Past Surgical History: Other Additional Past Surgical Histo: left elbow Smoking: Cigarettes, Less than 1pk/day Alcohol Use: None Drug Use: Cocaine, Marijuana, Methamphetamine Adult General HPI HPI Patient is a 25-year-old female presenting for left-sided chest pain. Onset was this morning shortly after waking up without exertion. Nothing known makes better, walking around and "everything" makes worse. Patient describes sharp pain deep in left breast that radiates to left shoulder and back between her shoulder blades. She has no formal history of cardiac disease but admits tobacco use, currently uses estrogen-based OCPs and has distant history of IV drug use and cocaine abuse. Patient is tearful, admits history of anxiety and states her anxiety is making current situation worse but she was concerned when she was driving to work and continued to have chest pain prompting her to come to our ER for evaluation instead Review of Systems Review of Systems Fourteen body systems of review of systems have been reviewed. See HPI for pertinent positives and negative responses, other alejandra all other systems are n egative, non-pertinent or non-contributory Allergies Allergies Allergies Coded Allergies Type Severity Reaction Last Updated Verified hydrocodone Allergy Unknown 05/17/20 Yes amoxicillin Adverse Reaction Intermediate 05/17/20 Yes cefaclor Adverse Reaction Intermediate 05/17/20 Yes Physical Exam Physical Exam Constitutional: Well developed, well nourished, no acute distress, non-toxic appearance. HENT: Normocephalic, atraumatic, bilateral external ears normal, oropharynx moist, no oral exudates, nose normal. Eyes: PERRLA, EOMI, conjunctiva normal, no discharge. Neck: Normal range of motion, no tenderness, supple, no stridor. Cardiovascular: Heart rate regular, sinus rhythm, no murmurs rubs or gallops Lungs & Thorax: Bilateral breath sounds clear to auscultation Abdomen: Bowel sounds normal, soft, no tenderness, no masses, no pulsatile masses. Nonsurgical abdomen, no peritoneal signs Skin: Warm, dry, no erythema, no rash. Back: No tenderness, no CVA tenderness. Extremities: No tenderness, no cyanosis, no clubbing, ROM intact, no edema. Neurologic: Alert and oriented X 3, grossly normal motor & sensory function, no focal deficits noted. Psychologic: Tearful affect, anxious mood Current Patient Data Vital Signs Vital Signs Date Time Temp Pulse Resp B/P (MAP) Pulse Ox O2 Delivery O2 Flow Rate FiO2 11/01/20 09:32 98.4 105 22 128/74 (92) 99 Room Air Lab Results Laboratory Tests Test 11/01/20 09:10 11/01/20 09:22 White Blood Count 6.9 x10^3/uL Red Blood Count 4.03 x10^6/uL Hemoglobin 12.6 g/dL Hematocrit 37.1 % Mean Corpuscular Volume 92 fL Mean Corpuscular Hemoglobin 31 pg Mean Corpuscular Hemoglobin Concent 34 g/dL Red Cell Distribution Width 14.3 % Platelet Count 251 x10^3/uL Neutrophils (%) (Auto) 58 % Lymphocytes (%) (Auto) 35 % Monocytes (%) (Auto) 5 % Eosinophils (%) (Auto) 2 % Basophils (%) (Auto) 1 % Neutrophils # (Auto) 4.0 x10^3uL Lymphocytes # (Auto) 2.4 x10^3/uL Monocytes # (Auto) 0.3 x10^3/uL Eosinophils # (Auto) 0.1 x10^3/uL Basophils # (Auto) 0.0 x10^3/uL D-Dimer (Elsy) 0.35 mg/L Sodium Level 136 mmol/L Potassium Level 4.3 mmol/L Chloride Level 102 mmol/L Carbon Dioxide Level 28 mmol/L Anion Gap 6 Blood Urea Nitrogen 14 mg/dL Creatinine 0.9 mg/dL Estimated GFR (Cockcroft-Gault) 76.3 BUN/Creatinine Ratio 16 Glucose Level 79 mg/dL Calcium Level 8.3 mg/dL Total Bilirubin 0.1 mg/dL Aspartate Amino Transf (AST/SGOT) 12 U/L Alanine Aminotransferase (ALT/SGPT) 20 U/L Alkaline Phosphatase 66 U/L Troponin I Quantitative < 0.017 ng/mL Total Protein 7.1 g/dL Albumin 3.9 g/dL Albumin/Globulin Ratio 1.2 Urine Opiates Screen Neg Urine Methadone Screen Neg Urine Barbiturates Neg Urine Phencyclidine Screen Neg Urine Amphetamine/Methamphetamine Neg Urine Benzodiazepines Screen Neg Urine Cocaine Screen Neg Urine Cannabinoids Screen Pos Urine Ethyl Alcohol Neg Bedside Urine HCG, Qualitative hcg negative Current Medications Medications (Trade) Dose Ordered Sig/Joie Route PRN Reason Start Time Stop Time Status Last Admin Dose Admin Ketorolac Tromethamine (Toradol 30mg Vial) 30 mg 1X ONCE IVP 11/01/20 10:30 11/01/20 10:31 DC 11/01/20 10:27 EKG EKG EKG ordered and interpreted by myself at 0908 hrs. as sinus rhythm at 109 bpm, unremarkable intervals, no axis deviation, no ischemic findings present, no STEMI Radiology/Procedures Radiology/Procedures EXAM: Chest, single view. HISTORY: Chest pain. COMPARISON: 05/17/2020 FINDINGS: A frontal view of the chest is obtained. There is no infiltrate, pleural effusion or pneumothorax. The heart is normal in size. IMPRESSION: No acute pulmonary finding. Electronically signed by: Irena Olson MD (11/01/2020 9:22 AM) [id number] Heart Score HEART Score for Chest Pain: HEART Score for Chest Pain Response (Comments) Value History Slighlty/Non-Suspicious 0 ECG Normal 0 Age < 45 0 Risk Factors 1 or 2 Risk Factors 1 Troponin < Normal Limit 0 Total 1 Risk Factors: Risk Factors: DM, Current or recent (<one month) smoker, HTN, HLP, family history of CAD, obesity. Risk Scores: Risk Factors: DM, Current or recent (<one month) smoker, HTN, HLP, family history of CAD, obesity. Course & Med Decision Making Course & Med Decision Making Discussed with the patient all findings and diagnostic testing. I discussed most likely diagnosis of noncardiac chest pain versus atypical chest pain. I discussed utility of heart score, she has no significant family medical history or other abnormalities indicating need for further diagnostic work-up in ER setting nor admission. I stressed need for close outpatient follow-up to review today's ER visit. Strict return precautions were also discussed at length with good understanding by patient. Patient voiced understanding and agreement with the plan. Patient knows to come back for repeat evaluation if concerning signs or symptoms present prior to outpatient follow-up. Hemodynamically stable, ambulatory and well-appearing at time of disposition. Dragon Disclaimer Dragon Disclaimer This electronic medical record was generated, in whole or in part, using a voice recognition dictation system. PERC Rule for PE PERC Rule for PE Response (Comments) Value Age > 50: No 0 HR > 100: Yes (Initially 105 but improved and averaged 70 bpm throughout duration of visit. Measurement was taken while patient was anxious after ambulating from ER waiting room to patient room) 1 Sa02 on room air <95%: No 0 Unilateral leg swelling: No 0 Hemoptysis: No 0 Recent surgery or trauma: No 0 Prior PE or DVT: No 0 Hormone use: No 0 Total 1 Departure Departure: Impression: Primary Impression: Chest pain, unspecified Disposition: 01 DC HOME SELF CARE/HOMELESS Condition: STABLE Referrals: KATTY WOO (PCP) Patient Instructions: Chest Pain (Nonspecific) Additional Instructions: You were seen for chest pain. Your workup did not show any acute abnormalities today, but does not indicate that you do not have underlying cardiovascular disease. You do need to follow up with your primary doctor and/or real estate assessor for further evaluation and treatment. You should return to the ED if you develop worsening chest pain, shortness of breath, fever, abnormal sweating, leg swelling, or any other new or concerning symptoms. ALEJANDRA DIAZ DO Nov 01, 2020 08:55
--- NOTE | 2020-11-01 09:22 | EKG ---
[address] [address] Test Date: 2020-11-01 Test Time: 09:00:37 Pat Name: BESSY SALCIDO Department: Room: Gender: F Document Control Clerk: MOODY : 1995 Requested By: ALEJANDRA DIAZ Order Number: [id number] Reading MD: Measurements Intervals [place] Rate: 109 P: 58 MD: 136 QRS: 75 QRSD: 68 T: 56 QT: 320 QTc: 432 Interpretive Statements SINUS TACHYCARDIA OTHERWISE NORMAL ECG RI6.02 No previous ECG available for comparison
--- NOTE | 2020-11-01 09:24 | RAD ---
EXAM: Chest, single view. HISTORY: Chest pain. COMPARISON: 05/17/2020 FINDINGS: A frontal view of the chest is obtained. There is no infiltrate, pleural effusion or pneumo thorax. The heart is normal in size. IMPRESSION: No acute pulmonary finding. Electronically signed by: Irena Olson MD (11/01/2020 9:22 AM) [id number]
[2020-11-01 09:32] VITALS: BP 128/74
[2020-11-01 09:52] LABS: BASO % 1 % (0-3); EOS # 0.1 x10^3/uL (0.0-0.7); EOS % 2 % (0-3); HEMATOCRIT 37.1 % (36.0-47.0); HEMOGLOBIN 12.6 g/dL (12.0-15.5); LYMPH # 2.4 x10^3/uL (1.0-4.8); LYMPH % 35 % (24-48); MEAN CORPUSCULAR HEMOGLOBIN 31 pg (25-35); MEAN CORPUSCULAR HGB CONC 34 g/dL (31-37); MEAN CORPUSCULAR VOLUME 92 fL (79-100); MONO # 0.3 x10^3/uL (0.0-1.1); MONO % 5 % (0-9); NEUT % 58 % (31-73); PLATELET COUNT 251 x10^3/uL (140-400); RED BLOOD COUNT 4.03 x10^6/uL (3.50-5.40); RED CELL DISTRIBUTION WIDTH 14.3 % (11.5-14.5); WHITE BLOOD COUNT 6.9 x10^3/uL (4.0-11.0)
[2020-11-01 09:56] LABS: BARBITURATES NEG (NEG); BENZODIAZEPINES NEG (NEG); CALCIUM 8.3 mg/dL (8.5-10.1); CANNABINOIDS POS (NEG); COCAINE NEG (NEG); CREATININE 0.9 mg/dL (0.6-1.0); GFR 76.3; METHADONE NEG (NEG); OPIATES NEG (NEG); PHENCYCLIDINE NEG (NEG); POTASSIUM 4.3 mmol/L (3.5-5.1)
[2020-11-01 09:59] LABS: AMPHETAMINE/METHAMPHETAMINE NEG (NEG)
[2020-11-01 10:02] LABS: ALBUMIN 3.9 g/dL (3.4-5.0); ALBUMIN/GLOBULIN RATIO 1.2 (1.0-1.7); TOTAL BILIRUBIN 0.1 mg/dL (0.2-1.0); TOTAL PROTEIN 7.1 g/dL (6.4-8.2)
[2020-11-01] MEDS ORDERED: KETOROLAC 30 MG/ML VIAL. IVP ONE (10:30)
== END 2020-11-01 11:06 | disposition home or self-care (01) ==
LOC: ER 08:42
DX: R07.89 Other chest pain (principal); F41.9 Anxiety disorder, unspecified; J45.909 Unspecified asthma, uncomplicated; E03.9 Hypothyroidism, unspecified; F17.210 Nicotine dependence, cigarettes, uncomplicated; Z88.5 Allergy status to narcotic agent; Z88.1 Allergy status to other antibiotic agents
CPT/HCPCS: 36415; 71045; 80053; 80307; 81025; 84484; 85025; 85379; 93005; 96374; 99285; J1885

== ENCOUNTER → 2020-12-04 | Outpatient (CLI) | payer OTHER | LOC: LAB 13:10 | PROVIDERS: ATTEND Surgery | DX: Z01.812 Encounter for preprocedural laboratory examination (principal); K82.8 Other specified diseases of gallbladder; Z20.822 Contact with and (suspected) exposure to COVID-19 | CPT/HCPCS: U0003 ==

== ENCOUNTER 2021-02-06 19:25 | Emergency (ER) | payer OTHER ==
[~2021-02-06] VITALS: Ht 170.2 cm; Wt 68.6 kg
[2021-02-06 19:25] VITALS: BP 128/77
[2021-02-06] MEDS ORDERED: predniSONE 10 MG TABLET PO ONE (19:45)
--- NOTE | 2021-02-06 19:45 | PHYS DOC ---
Past History Past Medical History: Anxiety Past Surgical History: No Surgical History Additional Past Surgical Histo: left elbow Smoking: Cigarettes, Less than 1pk/day Alcohol Use: None Drug Use: Cocaine, Marijuana, Methamphetamine General Adult EDM: Chief Complaint: SKIN RASH/ABSCESS HPI: HPI: 25-year-old female presents with facial rash and concern for allergic reaction. She started using a new vape oil yesterday. It did not occur during told today that it was blueberry flavored and its possible that he may have some kind of strawberry extract in it. She feels like she has got an itching sensation and mild bumps around her mouth. This seemed to spread to the rest of her face this morning. She took 1 Benadryl and admits that it seems a bit better. She has had no difficulty breathing or shortness of breath. She denies any oral swelling. She has no other complaints at this time. Review of Systems: Review of Systems: Constitutional: Denies fever or chills Eyes: Denies change in visual acuity HENT: Denies nasal congestion or sore throat Respiratory: Denies cough or shortness of breath Cardiovascular: Denies chest pain or edema GI: Denies abdominal pain, nausea, vomiting, bloody stools or diarrhea : Denies dysuria Musculoskeletal: Denies back pain or joint pain Integument: Rash Neurologic: Denies headache, focal weakness or sensory changes Endocrine: Denies polyuria or polydipsia Lymphatic: Denies swollen glands Psychiatric: Denies depression or anxiety Allergies: Allergies: Allergies Coded Allergies Type Severity Reaction Last Updated Verified hydrocodone Allergy Unknown 05/17/20 Yes amoxicillin Adverse Reaction Intermediate 05/17/20 Yes cefaclor Adverse Reaction Intermediate 05/17/20 Yes Physical Exam: PE: Constitutional: Well developed, well nourished, no acute distress, non-toxic appearance. [] HENT: Normocephalic, atraumatic, bilateral external ears normal, oropharynx moist with no signs of swelling, no oral exudates, nose normal. [] Eyes: PERRLA, EOMI, conjunctiva normal, no discharge. [] Neck: Normal range of motion, no tenderness, supple, no stridor. [] Cardiovascular:Heart rate regular rhythm, no murmur [] Lungs & Thorax: Bilateral breath sounds clear to auscultation [] Abdomen: Bowel sounds normal, soft, no tenderness, no masses, no pulsatile masses. [] Skin: Mild scattered papules 1 mm around the mouth and on the forehead. No erythema or swelling. [] Back: No tenderness, no CVA tenderness. [] Extremities: No tenderness, no cyanosis, no clubbing, ROM intact, no edema. [] Neurologic: Alert and oriented X 3, normal motor function, normal sensory function, no focal deficits noted. [] Psychologic: Affect normal, judgement normal, mood normal. [] EKG: EKG: [] Radiology/Procedures: Radiology/Procedures: [] Heart Score: C/O Chest Pain: N/A Risk Factors: Risk Factors: DM, Current or recent (<one month) smoker, HTN, HLP, family history of CAD, obesity. Risk Scores: Score 0 - 3: 2.5% MACE over next 6 weeks - Discharge Home Score 4 - 6: 20.3% MACE over next 6 weeks - Admit for Clinical Observation Score 7 - 10: 72.7% MACE over next 6 weeks - Early Invasive Strategies Course & Med Decision Making: Course & Med Decision Making Pertinent Labs and Imaging studies reviewed. (See chart for details) The patient's exam is very unimpressive. It is possible that she is having a mild reaction. I will give her 50 mg of prednisone. I do not believe she needs a taper for home. She can continue Benadryl as needed. If she develops any difficulty breathing or worse symptoms, she will return to the emergency room. She is stable for discharge at this time. [] Dragon Disclaimer: Dragon Disclaimer: This electronic medical record was generated, in whole or in part, using a voice recognition dictation system. Departure Departure: Impression: Primary Impression: Rash of face Disposition: HOME / SELF CARE / HOMELESS Condition: STABLE Referrals: KATTY WOO (PCP) Patient Instructions: Frankie [id number] PIO LOPEZ DO Feb 06, 2021 19:45
[2021-02-06] MEDS ORDERED: predniSONE 10 MG TABLET ONE (19:46)
== END 2021-02-06 19:49 | disposition home or self-care (01) ==
LOC: ER 19:25
DX: R21 Rash and other nonspecific skin eruption (principal); F41.9 Anxiety disorder, unspecified; F17.210 Nicotine dependence, cigarettes, uncomplicated; Z88.5 Allergy status to narcotic agent; Z88.1 Allergy status to other antibiotic agents
CPT/HCPCS: 99283; J7512

== ENCOUNTER 2021-02-11 08:00 | Emergency (ER) | payer OTHER ==
[~2021-02-11] VITALS: Ht 170.2 cm; Wt 68.6 kg
[2021-02-11 08:09] VITALS: BP 123/77
--- NOTE | 2021-02-11 08:24 | PHYS DOC ---
Past History Past Medical History: Anxiety Past Surgical History: No Surgical History Additional Past Surgical Histo: left elbow Smoking: Cigarettes, Less than 1pk/day Alcohol Use: None Drug Use: Cocaine, Marijuana, Methamphetamine General Adult EDM: Chief Complaint: EYE PROBLEMS HPI: HPI: 25-year-old female presents with visual change episodes. The patient has had at least 3 episodes in the last 1 month where she starts to get profuse eye watering, blurry vision and then has a total blackout of her vision. She does not pass out. The blank vision lasts between 30 seconds and 2 minutes and then her vision returns. She believes she has a mild headache afterwards, but the patient has frequent headaches at baseline. No history of migraines. She denies any recent trauma but admits to concussion in the past when she was younger. 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 She pulled over and was very concerned when she lost vision for a while. She denies nausea, vomiting, slurred speech, weakness of extremities. She denies having increased stress before or after these episodes. She is not taking any medications or supplements. She is on Depo-Provera for control. She denies alcohol use. She smokes cigarettes and marijuana daily. Denies fever or chills. Review of Systems: Review of Systems: Constitutional: Denies fever or chills Eyes: Denies change in visual acuity. Visual blackouts. HENT: Denies nasal congestion or sore throat Respiratory: Denies cough or shortness of breath Cardiovascular: Denies chest pain or edema GI: Denies abdominal pain, nausea, vomiting, bloody stools or diarrhea : Denies dysuria Musculoskeletal: Denies back pain or joint pain Integument: Denies rash Neurologic: Frequent headaches. Denies focal weakness or sensory changes Endocrine: Denies polyuria or polydipsia Lymphatic: Denies swollen glands Psychiatric: Denies depression or anxiety Allergies: Allergies: Allergies Coded Allergies Type Severity Reaction Last Updated Verified hydrocodone Allergy Unknown 02/11/21 Yes amoxicillin Adverse Reaction Intermediate 02/11/21 Yes cefaclor Adverse Reaction Intermediate 02/11/21 Yes Physical Exam: PE: Constitutional: Well developed, well nourished, no acute distress, non-toxic appearance. [] HENT: Normocephalic, atraumatic, bilateral external ears normal, oropharynx moist, no oral exudates, nose normal. [] Eyes: PERRLA, EOMI, conjunctiva normal, no discharge. [] Neck: Normal range of motion, no tenderness, supple, no stridor. [] Cardiovascular: Heart rate regular rhythm, no murmur [] Lungs & Thorax: Bilateral breath sounds clear to auscultation [] Abdomen: Bowel sounds normal, soft, no tenderness, no masses, no pulsatile masses. [] Skin: Warm, dry, no erythema, no rash. [] Back: No tenderness, no CVA tenderness. [] Extremities: No tenderness, no cyanosis, no clubbing, ROM intact, no edema. [] Neurologic: Alert and oriented X 3, normal motor function, normal sensory function, no focal deficits noted. [] Psychologic: Affect normal, judgement normal, mood concerned. [] Current Patient Data: Vital Signs: Vital Signs Date Time Temp Pulse Resp B/P (MAP) Pulse Ox O2 Delivery O2 Flow Rate FiO2 02/11/21 08:09 97.0 79 18 123/77 (92) 98 Room Air EKG: EKG: [] Radiology/Procedures: Radiology/Procedures: [] Impressions: RS Compliance Statement: One or more of the following individualized dose reduction techniques were utilized for this examination: 1. Automated exposure control 2. Adjustment of the mA and/or kV according to patient size 3. Use of iterative reconstruction technique CT HEAD WITHOUT AND WITH IV CONTRAST Clinical Indication: Reason: visual blackouts 1 month / Spl. Instructions: / History: Comparison: CT head without contrast June 27, 2015. Procedure: Axial images are obtained of the head from the skull base through the vertex before and after 70 cc of Omnipaque 300 IV contrast. Findings: The ventricles and sulci are normal for the patient's age. No mass-effect, midline shift, hemorrhage, extra-axial fluid collection, or obvious acute infarction is identified. Basilar cisterns are patent. No abnormal intracranial postcontrast enhancement is identified. Bone windows demonstrate no acute calvarial abnormality. 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 The visualized paranasal sinuses are clear. Mastoid air cells are well aerated. IMPRESSION: No acute intracranial abnormality. Electronically signed by: Femi Torres MD (02/11/2021 9:46 AM) [id number] DICTATED AND SIGNED BY: FEMI TORRES MD DATE: 02/11/21 0938 CC: PIO LOPEZ DO; KATTY WOO ~MTH0 0 Heart Score: C/O Chest Pain: N/A Risk Factors: Risk Factors: DM, Current or recent (<one month) smoker, HTN, HLP, family history of CAD, obesity. Risk Scores: Score 0 - 3: 2.5% MACE over next 6 weeks - Discharge Home Score 4 - 6: 20.3% MACE over next 6 weeks - Admit for Clinical Observation Score 7 - 10: 72.7% MACE over next 6 weeks - Early Invasive Strategies Course & Med Decision Making: Course & Med Decision Making Pertinent Labs and Imaging studies reviewed. (See chart for details) The patient's labs are unremarkable. She is positive for marijuana. Her head CT with and without contrast does not show any significant findings. The way the patient describes these episodes, they could be visual migraines. I do not see any acutely life-threatening conditions at this time. I have advised that she follow-up with her primary care physician and consider a neurology consult. She is stable for discharge at this time. [] Dragon Disclaimer: Dragon Disclaimer: This electronic medical record was generated, in whole or in part, using a voice recognition dictation system. Departure Departure: Impression: Primary Impression: Migraine variant Additional Impression: Visual disturbance Disposition: 01 HOME / SELF CARE / HOMELESS Condition: STABLE Referrals: KATTY WOO (PCP) Patient Instructions: Migraine Headache, [id number] PIO LOPEZ DO Feb 11, 2021 08:24
[2021-02-11] MEDS ORDERED: IV NORMAL SALINE 1,000ML 1,000 ML IV ONE (08:30)
[2021-02-11] MEDS ORDERED: IOHEXOL 300 MG/ML 75 ML VIAL. IV ONE (08:45)
[2021-02-11 08:49] LABS: BASO % 0 % (0-3); EOS # 0.1 x10^3/uL (0.0-0.7); EOS % 1 % (0-3); HEMATOCRIT 38.7 % (36.0-47.0); LYMPH # 2.9 x10^3/uL (1.0-4.8); LYMPH % 41 % (24-48); MEAN CORPUSCULAR HEMOGLOBIN 31 pg (25-35); MEAN CORPUSCULAR HGB CONC 34 g/dL (31-37); MEAN CORPUSCULAR VOLUME 94 fL (79-100); MONO # 0.3 x10^3/uL (0.0-1.1); MONO % 5 % (0-9); NEUT # 3.7 x10^3uL (1.8-7.7); NEUT % 53 % (31-73); PLATELET COUNT 229 x10^3/uL (140-400); RED BLOOD COUNT 4.14 x10^6/uL (3.50-5.40); RED CELL DISTRIBUTION WIDTH 14.2 % (11.5-14.5)
[2021-02-11 08:50] LABS: CALCIUM 8.7 mg/dL (8.5-10.1); CREATININE 0.9 mg/dL (0.6-1.0); GFR 76.3; POTASSIUM 3.8 mmol/L (3.5-5.1)
[2021-02-11 08:56] LABS: ALBUMIN 4.3 g/dL (3.4-5.0); ALBUMIN/GLOBULIN RATIO 1.2 (1.0-1.7); TOTAL BILIRUBIN 0.4 mg/dL (0.2-1.0)
[2021-02-11 09:04] LABS: BARBITURATES NEG (NEG); BENZODIAZEPINES NEG (NEG); CANNABINOIDS POS (NEG); CLARITY,URINE HAZY; COCAINE NEG (NEG); COLOR,URINE YELLOW; METHADONE NEG (NEG); OPIATES NEG (NEG); PHENCYCLIDINE NEG (NEG)
[2021-02-11 09:06] LABS: AMPHETAMINE/METHAMPHETAMINE NEG (NEG); BILIRUBIN,URINE NEG (NEG); GLUCOSE,URINE NEG (NEG); NITRITE,URINE NEG (NEG); UROBILINOGEN,URINE 0.2 mg/dL (0.2 mg/dL)
[2021-02-11 09:07] LABS: BACTERIA,URINE 0 /HPF (0-FEW); RBC,URINE OCC /HPF (0-2); SQUAMOUS EPITHELIAL CELL,UR MANY /LPF; WBC,URINE OCC /HPF (0-4)
--- NOTE | 2021-02-11 09:49 | RAD ---
RS Compliance Statement: One or more of the following individualized dose reduction techniques were utilized for this examinat ion: 1. Automated exposure control 2. Adjustment of the mA and/or kV according to patient size 3. Use of iterative reconstruction technique CT HEAD WITHOUT AND WITH IV CONTRAST Clinical Indication: Reason: visual blackouts 1 month / Spl. Instructions: / History: Comparison: CT head without contrast June 27, 2015. Procedure: Axial images are obtained of the head from the skull base through the vertex before and af ter 70 cc of Omnipaque 300 IV contrast. Findings: The ventricles and sulci are normal for the patient's age. No mass-effect, midline shift, hemorrhage, extra-axial fluid collection, or obvious acute infarction is identified. Basilar cisterns are patent. No abnormal intracranial postcontrast enhancement is tyson ntified. Bone windows demonstrate no acute calvarial abnormality. 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 The visualized paranasal sinuses are clear. Mastoid air cells are well aerated. IMPRESSION: No acute intracranial abnormality. Electronically signed by: Femi Brown MD (02/11/2021 9:46 AM) [id number]
== END 2021-02-11 10:00 | disposition home or self-care (01) ==
LOC: ER 08:00
DX: G43.809 Other migraine, not intractable, without status migrainosus (principal); F41.9 Anxiety disorder, unspecified; F17.210 Nicotine dependence, cigarettes, uncomplicated; Z88.1 Allergy status to other antibiotic agents; Z88.5 Allergy status to narcotic agent; Z88.8 Allergy status to other drugs, medicaments and biological substances
CPT/HCPCS: 36415; 70470; 80053; 80307; 81001; 81025; 85025; 87086; 96360; 99285; J7030; Q9967

== ENCOUNTER → 2021-02-11 | Outpatient (CLI) | payer OTHER ==
[2020-11-01 09:32] VITALS: BP_SYST 128
[2021-02-06 19:25] VITALS: BP_DIAS 77
--- NOTE | 2021-02-11 08:42 | RAD ---
EXAM: Chest CT without intravenous contrast. HISTORY: Chest pain. Shortness of breath with exertion. TECHNIQUE: Computed tomographic images of the chest were obtained without contrast. Multiplanar refor matting was performed. *One or more of the following individualized dose reduction techniques were utilized for this examina tion: 1. Automated exposure control. 2. Adjustment of the mA and/or kV according to patient size. 3. Use of iterative reconstruction technique. COMPARISON: None. FINDINGS: The heart is normal in size. The aorta is normal in caliber. There is soft tissue within th e anterior mediastinum due to residual thymus, within acceptable limits for patient age. There is no lymphadenopathy. There is no pneumothorax or pleural effusion. There is a calcified granuloma within the right middle lobe. There is no infiltrate or suspicious pulmonary nodule. The gallbladder is surg ically absent. There is no acute finding involving the upper abdomen. There is no suspicious osseous lesion. IMPRESSION: No acute thoracic finding. Electronically signed by: Irena Olson MD (02/11/2021 8:39 AM) [id number]
== END ==
LOC: CT 07:43
PROVIDERS: ATTEND Physician Assistant Medical
DX: J98.4 Other disorders of lung (principal); R07.9 Chest pain, unspecified; Z90.49 Acquired absence of other specified parts of digestive tract
CPT/HCPCS: 71250

== ENCOUNTER → 2021-04-04 | Outpatient (CLI) | payer OTHER ==
--- NOTE | 2021-04-04 09:22 | RAD ---
EXAM: ULTRASOUND ABDOMEN LIMITED CLINICAL HISTORY: Pain status post cholecystomy. COMPARISON: CT dated 09/02/2018. TECHNIQUE: Limited ultrasound examination of the right upper quadrant of the abdomen was performed. FINDINGS: The liver is normal in size. No focal hepatic lesion is seen. The gallbladder is surgically absent. The common bile duct is normal in caliber. The pancreas, right kidney and visualized portion s of the aorta are unremarkable. The inferior vena cava is prominent in caliber, stable compared to t he prior CT when allowing for differences in technique. There is no free fluid. IMPRESSION: No acute sonographic finding. Cholecystectomy. Electronically signed by: Irena Olson MD (04/04/2021 9:20 AM) [id number]
== END ==
LOC: US 08:44
PROVIDERS: ATTEND Surgery
DX: R10.11 Right upper quadrant pain (principal); Z80.49 Family history of malignant neoplasm of other genital organs
CPT/HCPCS: 76705

== ENCOUNTER 2021-04-28 11:12 | Emergency (ER) | payer OTHER ==
[~2021-04-28] VITALS: Ht 170.2 cm; Wt 68.1 kg
--- NOTE | 2021-04-28 11:54 | PHYS DOC ---
Past History Past Medical History: Anxiety Past Surgical History: Cholecystectomy Additional Past Surgical Histo: left elbow Smoking: Cigarettes, Less than 1pk/day Alcohol Use: None Drug Use: Cocaine, Marijuana, Methamphetamine General Adult EDM: Chief Complaint: ALLERGIC REACTION HPI: HPI: 25-year-old female presents with concern for allergic reaction. She was recently placed on cefdinir for a sinus infection and ear infection. She has only taken 3 doses. She feels like she is having tingling around her mouth. She also feels like her throat feels slightly swollen. Denies rash or pruritus. She denies having difficulty breathing. It is slightly more prominent to swallow. She has an amoxicillin and cephalosporin allergy but it was many years ago. She just had a rash at that time. She has no other complaints. Review of Systems: Review of Systems: Constitutional: Denies fever or chills Eyes: Denies change in visual acuity HENT: Mild discomfort with swallowing Respiratory: Denies cough or shortness of breath Cardiovascular: Denies chest pain or edema GI: Denies abdominal pain, nausea, vomiting, bloody stools or diarrhea : Denies dysuria Musculoskeletal: Denies back pain or joint pain Integument: Denies rash Neurologic: Denies headache, focal weakness or sensory changes Endocrine: Denies polyuria or polydipsia Lymphatic: Denies swollen glands Psychiatric: Denies depression or anxiety Allergies: Allergies: Allergies Coded Allergies Type Severity Reaction Last Updated Verified hydrocodone Allergy Unknown 02/11/21 Yes amoxicillin Adverse Reaction Intermediate 02/11/21 Yes cefaclor Adverse Reaction Intermediate 02/11/21 Yes Physical Exam: PE: Constitutional: Well developed, well nourished, no acute distress, non-toxic appearance. [] HENT: Normocephalic, atraumatic, bilateral external ears normal, oropharynx moist, no oral exudates, nose normal. [] Eyes: PERRLA, EOMI, conjunctiva normal, no discharge. [] Neck: Normal range of motion, no tenderness, supple, no stridor. [] Cardiovascular: Heart rate regular rhythm, no murmur [] Lungs & Thorax: Bilateral breath sounds clear to auscultation [] Abdomen: Bowel sounds normal, soft, no tenderness, no masses, no pulsatile masses. [] Skin: Warm, dry, no erythema, no rash. [] Back: No tenderness, no CVA tenderness. [] Extremities: No tenderness, no cyanosis, no clubbing, ROM intact, no edema. [] Neurologic: Alert and oriented X 3, normal motor function, normal sensory function, no focal deficits noted. [] Psychologic: Affect normal, judgement normal, mood normal. [] Current Patient Data: Vital Signs: Vital Signs Date Time Temp Pulse Resp B/P (MAP) Pulse Ox O2 Delivery O2 Flow Rate FiO2 04/28/21 11:12 97.9 77 14 109/78 100 Room Air EKG: EKG: [] Radiology/Procedures: Radiology/Procedures: [] Heart Score: C/O Chest Pain: N/A Risk Factors: Risk Factors: DM, Current or recent (<one month) smoker, HTN, HLP, family history of CAD, obesity. Risk Scores: Score 0 - 3: 2.5% MACE over next 6 weeks - Discharge Home Score 4 - 6: 20.3% MACE over next 6 weeks - Admit for Clinical Observation Score 7 - 10: 72.7% MACE over next 6 weeks - Early Invasive Strategies Course & Med Decision Making: Course & Med Decision Making Pertinent Labs and Imaging studies reviewed. (See chart for details) My exam did not show any significant swelling of the lips, face, or oropharynx. I will give the patient 60 mg of prednisone in the ED. She took 25 mg of Benadryl just prior to coming to the hospital. The patient has had no further increase in symptoms. At no time did she have any difficulty breathing. I will switch her cefdinir to doxycycline out of abundance of caution. She is stable for discharge at this time. [] Dania Disclaimer: Dania Disclaimer: This electronic medical record was generated, in whole or in part, using a voice recognition dictation system. Departure Departure: Impression: Primary Impression: Allergic reaction caused by a drug Qualified Codes: T78.40XA - Allergy, unspecified, initial encounter Disposition: HOME / SELF CARE / HOMELESS Condition: STABLE Referrals: KATTY WOO (PCP) Patient Instructions: Drug Allergy, [id number] Scripts Doxycycline Hyclate (DOXYCYCLINE HYCLATE) 100 Mg Tablet 1 TAB PO BID for sinus infection for 7 Days, #14 TAB Prov: PIO LOPEZ DO 04/28/21 PIO LOPEZ DO Apr 28, 2021 11:54
[2021-04-28] MEDS ORDERED: predniSONE 20 MG TABLET PO ONE (12:00)
[2021-04-28 12:15] VITALS: BP 107/70
[2021-04-28] MEDS ORDERED: DOXY100T PO (12:54)
== END 2021-04-28 12:57 | disposition home or self-care (01) ==
LOC: ER 11:12
DX: T78.40XA Allergy, unspecified, initial encounter (principal); F17.210 Nicotine dependence, cigarettes, uncomplicated; F12.10 Cannabis abuse, uncomplicated; F15.10 Other stimulant abuse, uncomplicated; F41.9 Anxiety disorder, unspecified; Z90.49 Acquired absence of other specified parts of digestive tract; Z88.1 Allergy status to other antibiotic agents; X58.XXXA Exposure to other specified factors, initial encounter
CPT/HCPCS: 99283; J7512

== ENCOUNTER → 2021-06-05 | Outpatient (CLI) | payer OTHER ==
[~2021-06-05] MED LIST changes: +DOXY100T PO
--- NOTE | 2021-06-05 12:03 | RAD ---
XR HAND_LEFT 2 VIEWS DATE: 06/05/2021 10:58 AM INDICATION: Reason: LEFT HAND PAIN, INJURY TO TIP OF 2ND FINGER. / Spl. Instructions: / History: COMPARISON: None. FINDINGS: Bones: There is no evidence of acute fracture or dislocation. Joints: The joint spaces are normal. Miscellaneous: No radiopaque foreign bodies. IMPRESSION: No evidence of acute fracture. Electronically signed by: Ollie Duke MD (06/05/2021 12:00 PM) [id number]
== END ==
LOC: RAD 10:51
PROVIDERS: ATTEND Family Medicine
DX: S69.92XA Unspecified injury of left wrist, hand and finger(s), initial encounter (principal); M79.642 Pain in left hand; X58.XXXA Exposure to other specified factors, initial encounter; Y93.89 Activity, other specified; Y92.89 Other specified places as the place of occurrence of the external cause; Y99.8 Other external cause status
CPT/HCPCS: 73120

== ENCOUNTER 2021-06-20 21:01 | Emergency (ER) | payer OTHER ==
[~2021-06-20] VITALS: Ht 170.2 cm; Wt 67.9 kg
[2021-06-20 21:18] VITALS: BP 102/73
--- NOTE | 2021-06-20 21:30 | PHYS DOC ---
Past History Past Medical History: Anxiety (CORBY ZAYAS APRN) Past Surgical History: Cholecystectomy Additional Past Surgical Histo: left elbow (CORBY ZAYAS APRN) Smoking: Cigarettes, Less than 1pk/day Alcohol Use: None Drug Use: Cocaine, Marijuana, Methamphetamine (CORBY ZAYAS APRN) Adult General Chief Complaint Chief Complaint: ABDOMINAL PAIN [facility] HPI Patient is a 26-year-old female patient who presents with right sided abdominal pain. Patient states pain seems start this morning, has been fairly constant throughout the day, sometimes is a dull pain, sometimes is a sharp pain. States she has multiple been nauseous, however states she has not had any emesis. Denies any diarrhea. Denies constipation. She reports she has had pain like this in the past, she does not know when the last time was checked on the ligaments her pain better is if she lays flat. Denies change in urination. Does report she has had a history of a prior kidney stone, also has had history of prior UTIs. Denies any fevers. Denies any urinary frequency, denies any vaginal bleeding, vaginal discharge. States she has not had a menstrual cycle since she has gotten off Depo, her last Depo injection was in December 2020 (CORBY ZAYAS APRN) Review of Systems Review of Systems Constitutional: Denies fever or chills [] Eyes: Denies change in visual acuity, redness, or eye pain [] HENT: Denies nasal congestion or sore throat [] Respiratory: Denies cough or shortness of breath [] Cardiovascular: No additional information not addressed in HPI [] GI: Denies vomiting, bloody stools or diarrhea [] states she does have some n ausea intermittently, states she does have some discomfort to her right abdomen. : Denies dysuria or hematuria [] denies any vaginal bleeding, vaginal discharge Musculoskeletal: Denies back pain or joint pain [] Integument: Denies rash or skin lesions [] Neurologic: Denies headache, focal weakness or sensory changes [] Endocrine: Denies polyuria or polydipsia [] All other systems were reviewed and found to be within normal limits, except as documented in this note. (CORBY ZAYAS APRN) Allergies Allergies Allergies Coded Allergies Type Severity Reaction Last Updated Verified hydrocodone Allergy Unknown 02/11/21 Yes amoxicillin Adverse Reaction Intermediate 02/11/21 Yes cefaclor Adverse Reaction Intermediate 02/11/21 Yes (CORBY ZAYAS APRN) Physical Exam Physical Exam Constitutional: Well developed, well nourished, no acute distress, non-toxic appearance. [] HENT: Normocephalic, atraumatic, bilateral external ears normal, oropharynx moist, no oral exudates, nose normal. [] Eyes: PERRLA, EOMI, conjunctiva normal, no discharge. [] Neck: Normal range of motion, no tenderness, supple, no stridor. [] Cardiovascular:Heart rate regular rhythm, no murmur [] Lungs & Thorax: Bilateral breath sounds clear to auscultation [] Abdomen: soft, , no masses, no pulsatile masses. [] Minimal tenderness noted to right upper quadrant on deep palpation. Bowel sounds hyper active Skin: Warm, dry, no erythema, no rash. [] Back: No tenderness, no CVA tenderness. [] Negative CVA tenderness bilaterally Extremities: No tenderness, no cyanosis, no clubbing, ROM intact, no edema. [] Neurologic: Alert and oriented X 3, normal motor function, normal sensory function, no focal deficits noted. [] Psychologic: Affect normal, judgement normal, mood normal. [] (CORBY ZAYAS APRN) Current Patient Data Vital Signs Vital Signs Date Time Temp Pulse Resp B/P (MAP) Pulse Ox O2 Delivery O2 Flow Rate FiO2 06/20/21 21:18 98.5 67 16 102/73 98 Room Air (CORBY ZAYAS APRN) EKG EKG [] (CORBY ZAYAS APRN) Radiology/Procedures Radiology/Procedures [] (CORBY ZAYAS APRN) Heart Score C/O Chest Pain: N/A Risk Factors: Risk Factors: DM, Current or recent (<one month) smoker, HTN, HLP, family history of CAD, obesity. Risk Scores: Risk Factors: DM, Current or recent (<one month) smoker, HTN, HLP, family history of CAD, obesity. (CORBY ZAYAS APRN) Course & Med Decision Making Course & Med Decision Making Pertinent Labs and Imaging studies reviewed. (See chart for details) [] (CORBY ZAYAS APRN) Course & Med Decision Making The patient's urinalysis is negative for blood. Kidney stone is highly unlikely. It is suggestive of UTI. Will treat the patient with Macrobid for 5 days. We will give the first dose in the ED. She is stable for discharge at this time. (PIO LOPEZ DO) Dragon Disclaimer Dragon Disclaimer This electronic medical record was generated, in whole or in part, using a voice recognition dictation system. (CORBY ZAYAS APRN) Attending Co-Sign The patient was seen and interviewed as well as examined at the bedside. The chart was reviewed. The case was discussed. Agree with the plan of care. (PIO LOPEZ DO) Departure Departure: Impression: Primary Impression: Urinary tract infection Disposition: HOME / SELF CARE / HOMELESS Condition: STABLE Referrals: KATTY WOO (PCP) Patient Instructions: Urinary Tract Infection, Xiya-uv-Ezcg Scripts Nitrofurantoin Monohyd/M-Cryst (MACROBID 100 MG CAPSULE) 100 Mg Capsule 1 CAP PO BID for UTI for 5 Days, #10 CAP 0 Refills Prov: PIO LOPEZ DO 06/20/21 CORBY ZAYAS APRN Jun 20, 2021 21:30 PIO LOPEZ DO Jun 20, 2021 22:39
[2021-06-20 22:31] LABS: BACTERIA,URINE FEW /HPF (0-FEW); BILIRUBIN,URINE NEG (NEG); CLARITY,URINE CLOUDY; COLOR,URINE AMBER; GLUCOSE,URINE NEG (NEG); NITRITE,URINE NEG (NEG); UROBILINOGEN,URINE 0.2 mg/dL (0.2 mg/dL)
[2021-06-20 22:33] LABS: SQUAMOUS EPITHELIAL CELL,UR FEW /LPF
[2021-06-20] MEDS ORDERED: NITR100C62 PO (22:39)
[2021-06-20] MEDS ORDERED: NITROFURANTOIN MONOHYD/M-CRYST 100 MG CAPSULE. PO ONE ×2 (22:48→23:00)
== END 2021-06-20 23:00 | disposition home or self-care (01) ==
LOC: ER 21:01
DX: N39.0 Urinary tract infection, site not specified (principal); F17.210 Nicotine dependence, cigarettes, uncomplicated; F12.10 Cannabis abuse, uncomplicated; F15.10 Other stimulant abuse, uncomplicated; F14.10 Cocaine abuse, uncomplicated; Z88.1 Allergy status to other antibiotic agents; Z90.49 Acquired absence of other specified parts of digestive tract
CPT/HCPCS: 81001; 81025; 99283

== ENCOUNTER 2021-07-17 19:26 | Emergency (ER) | payer MEDICAID, OTHER ==
[~2021-07-17] VITALS: Ht 170.2 cm; Wt 66.7 kg
[~2021-07-17 19:26] MED LIST changes: +NITR100C62 PO
[2021-07-17 19:39] VITALS: BP 102/63
--- NOTE | 2021-07-17 20:03 | PHYS DOC ---
Past History Past Medical History: Anxiety Additional Past Medical Histor: MOOD D/O Past Surgical History: Cholecystectomy Additional Past Surgical Histo: left elbow Smoking: Cigarettes, Less than 1pk/day Alcohol Use: None Drug Use: Cocaine, Marijuana, Methamphetamine Adult General Chief Complaint Chief Complaint: HEAD INJURY/TRAUMA HPI HPI Patient is a 26-year-old female presents with a chief complaint of head laceration. States she bent down to pick something up and her child opened the door to go in the house and when she came up she hit the top of her right side of her head on the handle. Denies headache, loss of consciousness, changes in vision, neck pain, nausea, vomiting. States she is not up-to-date on her tetanus vaccinations. Review of Systems Review of Systems Review of systems otherwise unremarkable except noted in HPI Allergies Allergies Allergies Coded Allergies Type Severity Reaction Last Updated Verified hydrocodone Allergy Unknown 07/17/21 Yes amoxicillin Adverse Reaction Intermediate 07/17/21 Yes cefaclor Adverse Reaction Intermediate 07/17/21 Yes Physical Exam Physical Exam Constitutional: Well developed, well nourished, no acute distress, non-toxic appearance. [] HENT: Patient has a 1 cm superficial linear laceration on the right parietal scalp, bleeding controlled, mild contusion, no signs of skull fracture, bilateral external ears normal, oropharynx moist, no oral exudates, nose normal. [] Eyes: PERRLA, EOMI, conjunctiva normal, no discharge. [] Neck: Normal range of motion, no tenderness, supple, no stridor. [] Neurologic: Alert and oriented X 3, normal motor function, normal sensory function, able to sit, stand and walk without issue, no focal deficits noted. [] Psychologic: Affect normal, judgement normal, mood normal. [] Current Patient Data Vital Signs Vital Signs Date Time Temp Pulse Resp B/P (MAP) Pulse Ox O2 Delivery O2 Flow Rate FiO2 07/17/21 19:39 98.8 85 18 102/63 (76) 97 Room Air EKG EKG [] Radiology/Procedures Radiology/Procedures [] Heart Score C/O Chest Pain: No Risk Factors: Risk Factors: DM, Current or recent (<one month) smoker, HTN, HLP, family history of CAD, obesity. Risk Scores: Risk Factors: DM, Current or recent (<one month) smoker, HTN, HLP, family history of CAD, obesity. Course & Med Decision Making Course & Med Decision Making Patient is a 26-year-old female who presents with scalp laceration Vital signs not concerning. Physical exam noted above. Given ice pack, Tylenol and ibuprofen. Updated tetanus. No need for repair. Given wound care instructions for home. Advised symptom management. Advised to follow-up in the morning with primary care to set up a follow-up. Patient grateful, verbalized understanding and agreed with plan of discharge. [] Dragon Disclaimer Dragon Disclaimer This electronic medical record was generated, in whole or in part, using a voice recognition dictation system. Departure Departure: Disposition: HOME / SELF CARE / HOMELESS Condition: GOOD Referrals: KATTY WOO (PCP) Patient Instructions: Laceration Care, Adult, Wound Care, [id number] Additional Instructions: Thank you for coming into the emergency department tonight and allowing us to take care of you. Please read the attached information above to go over things we discussed. Please keep the area clean and dry but do not scrub too hard on it as to interrupt scab formation. You can use Tylenol, ibuprofen and ice as needed. Please follow-up in the morning with your primary care physician to set up a follow-up as needed. Please come back with new or concerning symptoms as discussed. LULA ORONA MD Jul 17, 2021 20:03
[2021-07-17] MEDS: IBUPROFEN 600 MG TABLET. PO ONE (20:28)
[2021-07-17] MEDS: ACETAMINOPHEN 500 MG TABLET PO ONE (20:28)
[2021-07-17] MEDS: LIDOCAINE/EPI/TETRACAINE TOPICAL GEL 3 ML. TP ONE (20:28)
[2021-07-17] MEDS: DIPH,PERTUSS(ACELL),TET VAC/PF 0.5 ML SYRINGE. VAX IM ONE (20:30)
== END 2021-07-17 20:33 | disposition home or self-care (01) ==
LOC: ER 19:26
DX: S01.01XA Laceration without foreign body of scalp, initial encounter (principal); F17.210 Nicotine dependence, cigarettes, uncomplicated; Z88.5 Allergy status to narcotic agent; Z88.1 Allergy status to other antibiotic agents; W22.8XXA Striking against or struck by other objects, initial encounter; Y93.89 Activity, other specified; Y92.89 Other specified places as the place of occurrence of the external cause; Y99.8 Other external cause status
CPT/HCPCS: 90471; 90715; 99284

== ENCOUNTER 2021-07-21 19:08 | Emergency (ER) | payer MEDICAID ==
[~2021-07-21] VITALS: Ht 170.2 cm; Wt 66.7 kg
[2021-07-21 19:33] VITALS: BP 121/79
[2021-07-21] MEDS ORDERED: ONDANSETRON PF 4 MG/2 ML VIAL. ONE (20:35)
--- NOTE | 2021-07-21 20:36 | PHYS DOC ---
Past History Past Medical History: Anxiety Additional Past Medical Histor: MOOD D/O Past Surgical History: Cholecystectomy Additional Past Surgical Histo: left elbow Smoking: Cigarettes, Less than 1pk/day Alcohol Use: Occasionally Drug Use: Cocaine, Marijuana, Methamphetamine General Adult EDM: Chief Complaint: NAUSEA/VOMITING/DIARRHEA HPI: HPI: ". I ve been vomitng all day.. ".. " I think I picked up my daughter 24 hour bug.. but it been two days for me..:' Patient is a 26 year old female who presents with nausea and vomiting . Patient reports she has vomited 8 times today. Has not been able to tolerate p.o. Patient denies . Patient has been exposed to her younger daughter that had a 24-hour gastroenteritis type presentation. Patient has not completed COVID vaccination or flu vaccination. Pt. follows with [facility]. No recent travel. No specific other ill contacts other than her daughter. No history of immunosuppression. Patient does smoke tobacco .. Patient has had previous abdomen surgery of cholecystectomy. Review of Systems: Review of Systems: Constitutional: Subjective complaints of fever or chills Eyes: Denies change in visual acuity HENT: Denies nasal congestion or sore throat Respiratory: Denies cough or shortness of breath Cardiovascular: Denies chest pain or edema GI: Complains of generalized abdominal pain, nausea, vomiting,. Denies bloody st ools or diarrhea : Denies dysuria Musculoskeletal: Denies back pain or joint pain Integument: Denies rash Neurologic: Denies headache, focal weakness or sensory changes Endocrine: Denies polyuria or polydipsia Lymphatic: Denies swollen glands Psychiatric: Denies depression or anxiety Family History: Family History: Daughter recently had acute gastroenteritis episode for 24 hours is now resolved Current Medications: Current Meds: See nursing for home meds Allergies: Allergies: Allergies Coded Allergies Type Severity Reaction Last Updated Verified hydrocodone Allergy Unknown 07/21/21 Yes amoxicillin Adverse Reaction Intermediate 07/17/21 Yes cefaclor Adverse Reaction Intermediate 07/17/21 Yes Physical Exam: PE: Constitutional: moderate acute distress, non-toxic appearance. [] HENT: Normocephalic, atraumatic, bilateral external ears normal, oropharynx dry, no oral exudates, nose normal. [] Eyes: PERRLA, EOMI, conjunctiva normal, no discharge. [] Neck: Normal range of motion, no tenderness, supple, no stridor. [] Cardiovascular: Tachycardia heart rate regular rhythm, no murmur [] Lungs & Thorax: Bilateral breath sounds equal apex with scattered wheezes auscultation [] Abdomen: Bowel sounds hyperactive, soft, generalized tenderness, no masses, no pulsatile masses. Old surgery scars from cholecystectomy, Pt. no focal areas of rebound. Skin: Warm, dry, no erythema, no rash. Poor turgor Back: No tenderness, no CVA tenderness. [] Extremities: No tenderness, no cyanosis, no clubbing, ROM intact, no edema. No cording appreciated. No psoas sign. Lt elbow scar. Neurologic: Alert and oriented X 3, normal motor function, normal sensory function, no focal deficits noted. [] Psychologic: Affect anxious, judgement normal, mood normal. [] Current Patient Data: Labs: Note Labs are not crossing over- My review of significant labs-normal troponin. Normal electrolytes, UTI consistent with her elevated leukocytes esterase and bacteria. Consistent with UTI. Tox screen positive for marijuana, negative flu and negative Covid screen, mild leukocytosis 11.6 Vital Signs: Vital Signs Date Time Temp Pulse Resp B/P (MAP) Pulse Ox O2 Delivery O2 Flow Rate FiO2 07/21/ 19:33 97.7 94 28 121/79 (93) 98 Room Air EKG: EKG: [] Radiology/Procedures: Radiology/Procedures: [] Heart Score: C/O Chest Pain: N/A HEART Score for Chest Pain: HEART Score for Chest Pain Response (Comments) Value Troponin < Normal Limit 0 Total 0 Risk Factors: Risk Factors: DM, Current or recent (<one month) smoker, HTN, HLP, family history of CAD, obesity. Risk Scores: Score 0 - 3: 2.5% MACE over next 6 weeks - Discharge Home Score 4 - 6: 20.3% MACE over next 6 weeks - Admit for Clinical Observation Score 7 - 10: 72.7% MACE over next 6 weeks - Early Invasive Strategies Course & Med Decision Making: Course & Med Decision Making Pertinent Labs and Imaging studies reviewed. (See chart for details) Patient to remain on a clear fluid diet for the next 48 hours. No solids. No milk products. Patient may take Zofran 8 mg at 4 times a day for nausea and vomiting. Push fluids. Avoid illicit drug use. Encourage patient to stop smoking. Patient encouraged to get flu vaccination Covid vaccination went over this acute illness. Patient to follow-up primary care. Patient return if any concerns. Patient follow-up pending urine cultures. Patient to [facility] drinks. Patient take Bactrim DS twice a day x7 days. Impression; 1. Acute gastroenteritis 2. Dehydration 3. Urinary tract infection 4. History of tobacco and marijuana use. 5 . Mild leukocytosis 11.6 [] Dragon Disclaimer: Dragon Disclaimer: This electronic medical record was generated, in whole or in part, using a voice recognition dictation system. Departure Departure: Referrals: KATTY WOO (PCP) Scripts Sulfamethoxazole/Trimethoprim (BACTRIM DS TABLET) 1 Each Tablet 1 TAB PO BID for uti for 10 Days, #20 TAB 0 Refills Prov: STANFORD SALCIDO MD 07/22/21 Ondansetron Hcl (ZOFRAN) 4 Mg Tablet 8 MG PO QIDPRN PRN for nv, #30 TAB Prov: STANFORD SALCIDO MD 07/22/21 Dragon Disclaimer This chart was dictated in whole or in part using Voice Recognition software in a busy, high-work load, and often noisy Emergency Department environment. It may contain unintended and wholly unrecognized errors or omissions. STANFORD SALCIDO MD Jul 21, 2021 20:35
[2021-07-21 20:52] LABS: BASO % 0 % (0-3); EOS % 0 % (0-3); HEMATOCRIT 41.5 % (36.0-47.0); HEMOGLOBIN 13.9 g/dL (12.0-15.5); LYMPH # 0.5 x10^3/uL (1.0-4.8); LYMPH % 4 % (24-48); MEAN CORPUSCULAR HEMOGLOBIN 31 pg (25-35); MEAN CORPUSCULAR HGB CONC 33 g/dL (31-37); MEAN CORPUSCULAR VOLUME 92 fL (79-100); MONO # 0.2 x10^3/uL (0.0-1.1); MONO % 2 % (0-9); NEUT # 10.9 x10^3uL (1.8-7.7); NEUT % 94 % (31-73); PLATELET COUNT 220 x10^3/uL (140-400); RED BLOOD COUNT 4.51 x10^6/uL (3.50-5.40); RED CELL DISTRIBUTION WIDTH 13.8 % (11.5-14.5); WHITE BLOOD COUNT 11.6 x10^3/uL (4.0-11.0)
[2021-07-21 20:57] LABS: CREATININE 0.8 mg/dL (0.6-1.0); GFR 86.7
[2021-07-21] MEDS ORDERED: ONDANSETRON PF 4 MG/2 ML VIAL. IVP ONE (21:00)
[2021-07-21] MEDS ORDERED: IV RINGERS SOLUTION,LACTATED 1,000 ML IV SCH (21:00)
[2021-07-21] MEDS ORDERED: FAMOTIDINE 20 MG/2 ML VIAL IVP ONE (21:00)
[2021-07-21 21:03] LABS: ALBUMIN 4.4 g/dL (3.4-5.0); DIRECT BILIRUBIN 0.2 mg/dL (0.0-0.2); TOTAL PROTEIN 7.8 g/dL (6.4-8.2)
[2021-07-21 21:40] LABS: BARBITURATES NEG (NEG); BENZODIAZEPINES NEG (NEG); CANNABINOIDS POS (NEG); COCAINE NEG (NEG); METHADONE NEG (NEG); OPIATES NEG (NEG); PHENCYCLIDINE NEG (NEG)
[2021-07-21 21:44] LABS: AMPHETAMINE/METHAMPHETAMINE NEG (NEG)
[2021-07-21 21:53] LABS: BILIRUBIN,URINE SMALL (NEG); CLARITY,URINE CLOUDY; COLOR,URINE YELLOW; GLUCOSE,URINE NEG (NEG)
[2021-07-21 21:54] LABS: BACTERIA,URINE MOD /HPF (0-FEW); NITRITE,URINE NEG (NEG); SQUAMOUS EPITHELIAL CELL,UR MANY /LPF; UROBILINOGEN,URINE 0.2 mg/dL (0.2 mg/dL)
[2021-07-22 00:06] LABS: INFLUENZA A PATIENT NEGATIVE (NEGATIVE); INFLUENZA B PATIENT NEGATIVE (NEGATIVE)
[2021-07-22] MEDS ORDERED: SULF1TAB24 PO (00:31)
[2021-07-22] MEDS ORDERED: ONDA4TAB7 PO (00:31)
[2021-07-22] MEDS ORDERED: SMZ/TMP 800/160MG TABLET. PO ONE (01:00)
--- NOTE | 2021-07-23 11:55 | NUR ---
IP: Patient notified of negative COVID19 test result. Verbalized understanding.
== END 2021-07-22 01:03 | disposition home or self-care (01) ==
LOC: ER 19:08
DX: K52.9 Noninfective gastroenteritis and colitis, unspecified (principal); E86.0 Dehydration; N39.0 Urinary tract infection, site not specified; D72.829 Elevated white blood cell count, unspecified; F41.9 Anxiety disorder, unspecified; F17.210 Nicotine dependence, cigarettes, uncomplicated; F12.10 Cannabis abuse, uncomplicated; F14.10 Cocaine abuse, uncomplicated; F15.10 Other stimulant abuse, uncomplicated; Z20.822 Contact with and (suspected) exposure to COVID-19; Z88.5 Allergy status to narcotic agent; Z88.1 Allergy status to other antibiotic agents
CPT/HCPCS: 80048; 80076; 80307; 81001; 81025; 82550; 83690; 84484; 85025; 87086; 87426; 87804; 96361; 96374; 96375; 99284; C9803; J2405; J3490; J7120; U0003; 87147

== ENCOUNTER 2021-11-02 09:15 | Emergency (ER) | payer MEDICAID ==
[~2021-11-02] VITALS: Ht 170.2 cm; Wt 65.0 kg
[~2021-11-02 09:15] MED LIST changes: +DICY20TA PO; -DICY20TA3 PO; +ONDA4TAB7 PO
--- NOTE | 2021-11-02 09:44 | PHYS DOC ---
Past History Past Medical History: Anxiety Additional Past Medical Histor: MOOD D/O Past Surgical History: Cholecystectomy Additional Past Surgical Histo: left elbow Smoking: Cigarettes, Less than 1pk/day Alcohol Use: Occasionally Drug Use: Cocaine, Marijuana, Methamphetamine Adult General Chief Complaint Chief Complaint: CONGESTION HPI HPI Patient is a 26-year-old female presenting via POV for multiple complaints. Reports she has had 48 hours of left-sided lower back pain with dysuria and suprapubic pain. She also cites for the last 24 hours she has had nasal congestion, fever greater than 100.4 that was responsive to Tylenol, and x1 episode of nonbloody nonbilious emesis due to nausea prompting her to come in for evaluation. She takes Latuda for bipolar otherwise no diagnosed other medical conditions. She she is not vaccinated against COVID-19 Review of Systems Review of Systems Fourteen body systems of review of systems have been reviewed. See HPI for pertinent positives and negative responses, other alejandra all other systems are negative, non-pertinent or non-contributory Allergies Allergies Allergies Coded Allergies Type Severity Reaction Last Updated Verified Cephalosporins Allergy Unknown 11/02/21 Yes hydrocodone Allergy Unknown 07/21/21 Yes amoxicillin Adverse Reaction Intermediate 07/17/21 Yes cefaclor Adverse Reaction Intermediate 07/17/21 Yes Physical Exam Physical Exam Constitutional: Well developed, well nourished, no acute distress, non-toxic appearance. HENT: Normocephalic, atraumatic, bilateral external ears normal, oropharynx moist, no oral exudates, nose normal. Eyes: PERRLA, EOMI, conjunctiva normal, no discharge. Neck: Normal range of motion, no tenderness, supple, no stridor. Cardiovascular: Heart rate regular, sinus rhythm, no murmurs rubs or gallops Lungs & Thorax: Bilateral breath sounds clear to auscultation Abdomen: Bowel sounds normal, soft, no tenderness, no masses, no pulsatile masses. Nonsurgical abdomen, no peritoneal signs Skin: Warm, dry, no erythema, no rash. Back: No tenderness, no CVA tenderness. Extremities: No tenderness, no cyanosis, no clubbing, ROM intact, no edema. Neurologic: Alert and oriented X 3, grossly normal motor & sensory function, no focal deficits noted. Psychologic: Affect normal, judgement normal, mood normal. Current Patient Data Vital Signs Vital Signs Date Time Temp Pulse Resp B/P (MAP) Pulse Ox O2 Delivery O2 Flow Rate FiO2 11/02/21 09:15 97.9 103 18 97/67 (77) 97 Room Air Vital Signs Date Time Temp Pulse Resp B/P (MAP) Pulse Ox O2 Delivery O2 Flow Rate FiO2 11/02/21 09:15 97.9 103 18 97/67 (77) 97 Room Air Lab Results Laboratory Tests Test 11/02/21 09:35 11/02/21 09:42 11/02/21 10:45 Urine Collection Type Unknown Urine Color Yellow Urine Clarity Hazy Urine pH 6.0 Urine Specific [place] 1.025 Urine Protein Neg Urine Glucose (UA) Neg mg/dL Urine Ketones (Stick) Neg mg/dL Urine Blood Small Urine Nitrite Neg Urine Bilirubin Neg Urine Urobilinogen Dipstick 0.2 mg/dL Urine Leukocyte Esterase Small Urine RBC 1-2 /HPF Urine WBC 11-20 /HPF Urine Squamous Epithelial Cells Few /LPF Urine Bacteria Few /HPF Urine Mucus Slight /LPF Bedside Urine HCG, Qualitative hcg negative Influenza Type A (Rapid) Negative Influenza Type B (Rapid) Negative SARS-CoV-2 Antigen (Rapid) Positive Current Medications Medications (Trade) Dose Ordered Sig/Joie Route PRN Reason Start Time Stop Time Status Last Admin Dose Admin Ketorolac Tromethamine (Toradol Im) 60 mg 1X ONCE IM 11/02/21 11:15 11/02/21 11:16 DC 11/02/21 11:29 Ciprofloxacin (Cipro) 500 mg 1X ONCE PO 11/02/21 11:15 11/02/21 11:16 DC 11/02/21 11:27 Radiology/Procedures Radiology/Procedures Renal ultrasound 11/02/2021 CLINICAL HISTORY: UTI. Flank pain. TECHNIQUE: A real-time ultrasound examination of both kidneys and the urinary bladder was performed. Multiple images were obtained. FINDINGS: Comparison is made to a CT scan of the abdomen and pelvis dated 09/01/2018. Both kidneys are within normal limits in size and echogenicity. The right kidney measures 9.1 cm in length. The left kidney measures 9.4 cm in length. No focal abnormality of either kidney is seen. There is no evidence of hydronephrosis. No renal calculus is seen. The urinary bladder is contracted. No abnormality is seen. IMPRESSION: Negative study. Electronically signed by: Jared Patterson MD (11/02/2021 12:38 PM) [id number] Heart Score C/O Chest Pain: No Risk Factors: Risk Factors: DM, Current or recent (<one month) smoker, HTN, HLP, family history of CAD, obesity. Risk Scores: Risk Factors: DM, Current or recent (<one month) smoker, HTN, HLP, family history of CAD, obesity. Course & Med Decision Making Course & Med Decision Making ABCs nonconcerning HPI physical exam and comprehensive ER work-up concerning for UTI classified as pyelonephritis given reported fever and left CVA pain. Patient also found to be COVID-positive in an unvaccinated individual Given allergies and diagnosis of pyelonephritis, joint decision made to administer ciprofloxacin which has been used in the past. IM Toradol admin istered with improvement in aches, pains and headache Patient educated on new diagnosis of COVID-19 infection and need for self quarantine with continued supportive care practices, prescribed antibiotics as mentioned above and close outpatient follow-up with primary care provider when safe to do so in outpatient setting Dragon Disclaimer Dragon Disclaimer This electronic medical record was generated, in whole or in part, using a voice recognition dictation system. Departure Departure: Impression: Primary Impression: Pyelonephritis Additional Impression: COVID-19 Disposition: HOME / SELF CARE / HOMELESS Condition: STABLE Referrals: KATTY WOO (PCP) Patient Instructions: Pyelonephritis, Adult Additional Instructions: As discussed prior to ER departure, you were found to be COVID-positive and suffering from pyelonephritis. You are unvaccinated with COVID, there is not much we can do for this besides supportive care which should include Tylenol and/or ibuprofen for body aches and pains. Regarding your pyelonephritis, you are prescribed an antibiotic which she should take daily as indicated to completion. You need to call your primary care physician first thing on Thursday and notify them of your new diagnoses today and need for close outpatient follow-up when safe to do so. You need to self quarantine and continue providing supportive care to yourself in the meantime. If any concerning signs or symptoms present prior to outpatient follow-up please do not hesitate to come back for repeat evaluation. It was a pleasure to take care of you and I wish you a speedy recovery Scripts Ciprofloxacin Hcl (CIPROFLOXACIN HCL) 500 Mg Tablet 1 TAB PO BID for pyelonephritis for 7 Days, #13 TAB Prov: ALEJANDRA DIAZ DO 11/02/21 Problem Qualifiers ALEJANDRA DIAZ DO Nov 02, 2021 09:44
[2021-11-02 10:29] LABS: BACTERIA,URINE FEW /HPF (0-FEW); BILIRUBIN,URINE NEG (NEG); CLARITY,URINE HAZY; COLOR,URINE YELLOW; GLUCOSE,URINE NEG (NEG); NITRITE,URINE NEG (NEG); SQUAMOUS EPITHELIAL CELL,UR FEW /LPF; UROBILINOGEN,URINE 0.2 mg/dL (0.2 mg/dL)
[2021-11-02] MEDS ORDERED: KETOROLAC 60 MG/2 ML VIAL. IM ONE (11:15)
[2021-11-02] MEDS ORDERED: CIPROFLOXACIN HCL 500 MG TABLET PO ONE (11:15)
[2021-11-02 11:46] LABS: INFLUENZA A PATIENT NEGATIVE (NEGATIVE); INFLUENZA B PATIENT NEGATIVE (NEGATIVE)
--- NOTE | 2021-11-02 12:40 | RAD ---
Renal ultrasound 11/02/2021 CLINICAL HISTORY: UTI. Flank pain. TECHNIQUE: A real-time ultrasound examination of both kidneys and the urinary bladder was performed. Multiple images were obtained. FINDINGS: Comparison is made to a CT scan of the abdomen and pelvis dated 09/01/2018. Both kidneys are within normal limits in size and echogenicity. The right kidney measures 9.1 cm in l ength. The left kidney measures 9.4 cm in length. No focal abnormality of either kidney is seen. Ther e is no evidence of hydronephrosis. No renal calculus is seen. The urinary bladder is contracted. No abnormality is seen. IMPRESSION: Negative study. Electronically signed by: Jared Patterson MD (11/02/2021 12:38 PM) [id number]
[2021-11-02] MEDS ORDERED: CIPR500T2 PO (12:53)
[2021-11-02 13:18] VITALS: BP 90/59
== END 2021-11-02 13:17 | disposition home or self-care (01) ==
LOC: ER 09:15
DX: U07.1 COVID-19 (principal); N12 Tubulo-interstitial nephritis, not specified as acute or chronic; F41.9 Anxiety disorder, unspecified; F17.210 Nicotine dependence, cigarettes, uncomplicated; Z88.1 Allergy status to other antibiotic agents; Z88.5 Allergy status to narcotic agent
CPT/HCPCS: 76770; 81001; 81025; 87086; 96372; 99284; J1885

== ENCOUNTER → 2021-11-27 | Outpatient (CLI) | payer MEDICAID ==
[2021-11-02 13:18] VITALS: BP 90/59
[~2021-11-27] MED LIST changes: +CIPR500T2 PO
--- NOTE | 2021-11-27 11:43 | RAD ---
EXAM: XR LUMBAR SPINE 4+V 11/27/2021 11:25 AM CLINICAL INDICATION: Pain, recent Covid, kidney infection COMPARISON: CT abdomen pelvis 09/01/2018 TECHNIQUE: 5 views of the lumbar spine FINDINGS: No acute fracture. Alignment is normal. Disc spaces are maintained. Facet joints are tasneem l. There are cholecystectomy clips. IMPRESSION: Normal lumbar spine. Electronically signed by: Angie Grubbs MD (11/27/2021 11:41 AM) [id number]
== END ==
LOC: RAD 11:18
PROVIDERS: ATTEND Nurse Practitioner Family
DX: M54.50 Low back pain, unspecified (principal); N15.9 Renal tubulo-interstitial disease, unspecified; Z86.16 Personal history of COVID-19; Z90.49 Acquired absence of other specified parts of digestive tract
CPT/HCPCS: 72110

== ENCOUNTER 2022-02-28 12:32 | Emergency (ER) | payer MEDICAID, OTHER ==
[~2022-02-28] VITALS: Ht 170.2 cm; Wt 65.0 kg
[2022-02-28 12:40] VITALS: BP 106/76
[2022-02-28] MEDS ORDERED: IBUPROFEN 600 MG TABLET. PO ONE (12:45)
--- NOTE | 2022-02-28 13:09 | RAD ---
EXAM: XR EXAM OF ANKLE_LEFT 3V 02/28/2022 1:04 PM CLINICAL INDICATION: Pain after inversion injury COMPARISON: None TECHNIQUE: AP, oblique, and lateral views of the left ankle FINDINGS: No acute fracture. Alignment is normal. Ankle mortise is symmetric and talar dome is intac t. Tiny posterior calcaneal enthesophyte. Mild lateral soft tissue swelling. IMPRESSION: No acute osseous abnormality. Electronically signed by: Angie Grubbs MD (02/28/2022 1:06 PM) [id number]
--- NOTE | 2022-02-28 13:13 | PHYS DOC ---
Past History Past Medical History: Anxiety Additional Past Medical Histor: MOOD D/O Past Surgical History: Cholecystectomy, Other Additional Past Surgical Histo: left elbow Smoking: Cigarettes, Less than 1pk/day Alcohol Use: Occasionally Drug Use: Cocaine, Marijuana, Methamphetamine Adult General Chief Complaint Chief Complaint: ANKLE PROBLEM HPI HPI Patient is a 26-year-old female presenting to the emergency department for evaluation of left ankle pain status post stepping on a stair awkwardly and inverting her ankle. She denies any other areas of injury or pain and no weakness numbness or tingling. Review of Systems Review of Systems Constitutional: Denies fever or chills [] Musculoskeletal: Denies back pain. Positive left ankle joint pain Integument: Denies rash or skin lesions [] Neurologic: Denies headache, focal weakness or sensory changes [] All other systems were reviewed and found to be within normal limits, except as documented in this note. Current Medications Current Medications Current Medications Medications (Trade) Dose Ordered Sig/Joie Start Time Stop Time Status Last Admin Dose Admin Ibuprofen (Motrin) 600 mg 1X ONCE 02/28/22 12:45 02/28/22 12:55 DC Allergies Allergies Allergies Coded Allergies Type Severity Reaction Last Updated Verified Cephalosporins Allergy Unknown 11/02/21 Yes hydrocodone Allergy Unknown 07/21/21 Yes amoxicillin Adverse Reaction Intermediate 07/17/21 Yes cefaclor Adverse Reaction Intermediate 07/17/21 Yes Physical Exam Physical Exam Constitutional: Well developed, well nourished, no acute distress, non-toxic appearance. [] Extremities: No proximal tib-fib tenderness to palpation and no bony foot tenderness to palpation however patient has pain and swelling noted to left lateral malleolus. Neurologic: Alert and oriented X 3, normal motor function, normal sensory function, no focal deficits noted. [] Current Patient Data Vital Signs Vital Signs Date Time Temp Pulse Resp B/P (MAP) Pulse Ox O2 Delivery O2 Flow Rate FiO2 02/28/22 12:40 98.0 16 106/76 (86) Room Air EKG EKG [] Radiology/Procedures Radiology/Procedures [] Heart Score C/O Chest Pain: No Risk Factors: Risk Factors: DM, Current or recent (<one month) smoker, HTN, HLP, family history of CAD, obesity. Risk Scores: Risk Factors: DM, Current or recent (<one month) smoker, HTN, HLP, family history of CAD, obesity. Course & Med Decision Making Course & Med Decision Making Patient's x-ray is negative and she is neurovascularly intact. She will be discharged with a diagnosis of a left ankle sprain told to stay off of it until she is pain-free and follow with PCP within 1 week for recheck and come back to emergency department sooner with worsening pain neurologic changes with general concerns. Patient aware and agreeable with plan and verbalized understanding of the above instructions. Dragon Disclaimer Dragon Disclaimer This electronic medical record was generated, in whole or in part, using a voice recognition dictation system. Departure Departure: Impression: Primary Impression: Left ankle sprain Disposition: HOME / SELF CARE / HOMELESS Condition: STABLE Referrals: KATTY WOO (PCP) Patient Instructions: Ankle Sprain, [id number] Additional Instructions: Take ibuprofen and tylenol for pain. Rest Ice Compression Elevation PCP f/u in 1 week. Problem Qualifiers Primary Impression: Left ankle sprain Encounter type: initial encounter Involved ligament of ankle: unspecified ligament Qualified Codes: S93.402A - Sprain of unspecified ligament of left ankle, initial encounter OLIVE ALANIS DO February 28, 2022 13:13
== END 2022-02-28 13:40 | disposition home or self-care (01) ==
LOC: ER 12:32
DX: S93.402A Sprain of unspecified ligament of left ankle, initial encounter (principal); F17.210 Nicotine dependence, cigarettes, uncomplicated; Z88.1 Allergy status to other antibiotic agents; Z88.5 Allergy status to narcotic agent; X50.9XXA Other and unspecified overexertion or strenuous movements or postures, initial encounter; Y93.89 Activity, other specified; Y92.89 Other specified places as the place of occurrence of the external cause; Y99.8 Other external cause status
CPT/HCPCS: 73610; 99283; L4350